=== PATIENT | female | born 1970 | race Caucasian/White ===

== ENCOUNTER 2018-06-30 16:22 | Emergency (ER) | payer OTHER, SELFPAY ==
[2018-06-30 16:30] VITALS: BP 134/70; PULSE 80; RESP 20; TEMP 36.6; O2SAT 99
--- NOTE | 2018-06-30 16:40 | DI.RAD.S_ITS ---
PROCEDURE: XR CHEST 2V INDICATIONS: Shortness of breath and cough. TECHNIQUE: 2 views of the chest were acquired. COMPARISON: None. FINDINGS: Surgical changes and devices: None. Lungs and pleura: No pleural effusions or pneumothorax. Lungs are clear. Mediastinum: Mediastinal contours are normal. Heart size is normal. Bones and chest wall: No suspicious bony abnormalities. Soft tissues appear unremarkable. IMPRESSION: No acute cardiopulmonary pathology. Dictated by: Lorenzo Prakash M.D. on 06/30/2018 at 16:59 Approved by: Lorenzo Prakash M.D. on 06/30/2018 at 17:00
--- NOTE | 2018-06-30 16:52 | ED.SOB ---
HPI - SOB/Dyspnea General Chief Complaint: Shortness of Breath/Dyspnea Stated Complaint: Thinks pneumonia Time Seen by Provider: 06/30/18 16:32 Source: patient Mode of arrival: ambulatory Limitations: no limitations History of Present Illness Patient is a 48-year-old female who presents with dry non hacky cough ongoing for the last 9-10 days. She has not really had a fever. However her cough is getting worse. She coughs every time she takes a breath. She does have a beauty roll inhalers that he has not been using them. She has a history of ARDS on her lungs have been weaker ever since. She has some chest tightness but denies any chest pain. MD Complaint: shortness of breath and cough Consistency/Duration: constant Relieving factors: nothing Exacerbating factors: nothing Related Data Home Medications Medication Instructions Recorded Confirmed citalopram [Celexa] #0 08/03/17 Previous Rx's Medication Instructions Recorded loratadine [Claritin Liqui-Gel] 10 mg PO QDAY #30 sgl 08/04/17 mometasone [Nasonex] 1 spray INTRANASAL BID #1 bot 08/04/17 prednisone 50 mg PO DAILY #4 tab 06/30/18 Allergies Allergy/AdvReac Type Severity Reaction Status Date / Time ciprofloxacin [CIPROFLOXACIN] AdvReac Unknown Unverified 12/05/17 12:06 Review of Systems Review of Systems GENERAL: Denies chills, fatigue, malaise, fever, sweats, travel HEENT: Denies sinus pain, ear pain, sore throat, difficulty swallowing, neck pain RESPIRATORY: See HPI CARDIOVASCULAR: Denies chest pain, palpitations, orthopnea, edema GASTROINTESTINAL: Denies nausea, vomiting, abdominal pain, diarrhea, constipation, melena. : Denies dysuria, frequency, incontinence, hematuria, urinary retention, flank pain. MUSCULOSKELETAL: Denies weakness, joint pain, or bony pain SKIN: No rash, no erythema, no pruritus NEUROLOGIC: Denies weakness, dizziness, headache, numbness, change in speech, confusion PSYCHIATRIC: No concerning psychosocial issues. 12 point review of systems is negative except for those stated above and HPI PFSH Medical History ARDS (adult respiratory distress syndrome) (Acute) Social History Smoking Status: Never smoker alcohol intake: never substance use type: does not use Exam Initial Vital Signs Initial Vital Signs: Vital Signs Temperature 97.9 F 06/30/18 16:30 Pulse Rate 80 06/30/18 16:30 Respiratory Rate 20 06/30/18 16:30 Blood Pressure 134/70 06/30/18 16:30 Pulse Oximetry 99 06/30/18 16:30 GENERAL: Anxious awake alert speaking in full sentences HEENT: Head atraumatic,EOMI, pupils reactive, neck is supple no meningeal sign CARDIOVASCULAR: Regular rate and rhythm without murmurs, rubs or gallops. RESPIRATORY: Slightly decreased breath sounds on the right side no wheezes rales or rhonchi, no stridor speaking in full sentences ABDOMEN: Soft, nontender. Normoactive bowel sounds all 4 quadrants. No guarding or rebound. EXTREMITIES: Normal range of motion, no clubbing or edema. Neurovascularly intact NEUROLOGICAL: Alert and oriented x4.Normal gait and speech SKIN: Warm, dry, no laceration, no petechiae, no rashes or lesions. Course Orders Ordered: ED Orders 06/30/18 16:40 XR chest 2V Stat Discontinued Medications Albuterol/Ipratropium (Duoneb) 3 ml INH NOW ONE Stop: 06/30/18 16:41 Last Admin: 06/30/18 17:13 Dose: 3 ml Vital Signs - 8 hr 06/30/18 16:30 06/30/18 17:13 Temperature 97.9 F Pulse Rate 80 64 Respiratory Rate 20 15 Blood Pressure 134/70 Pulse Oximetry 99 94 MDM - SOB/Dyspnea Imaging Data Chest x-ray: Radiologist's impression: PROCEDURE: XR CHEST 2V INDICATIONS: Shortness of breath and cough. TECHNIQUE: 2 views of the chest were acquired. COMPARISON: None. FINDINGS: Surgical changes and devices: None. Lungs and pleura: No pleural effusions or pneumothorax. Lungs are clear. Mediastinum: Mediastinal contours are normal. Heart size is normal. Bones and chest wall: No suspicious bony abnormalities. Soft tissues appear unremarkable. IMPRESSION: No acute cardiopulmonary pathology. Dictated by: Lorenzo Prakash M.D. on 06/30/2018 at 16:59 Discharge Plan Departure Patient Disposition: Home Clinical Impression: Bronchitis Instructions: Acute Bronchitis Activity Restrictions/Additional Instructions: *You have been diagnosed with bronchitis *What to do: Rest, increase fluids *Continue to take medications as directed Albuterol inhaler with spacer 2 puffs every 4 hr if needed for shortness of breath Prednisone 50 mg once a day starting tomorrow for the next 4 days *Follow up with your primary care provider in 2-3 days *Return to ER if you should have fever, increased shortness of breath or difficulty breathing or any new, worsening or concerning symptoms Prescriptions: New prednisone 50 mg tablet 50 mg PO DAILY Qty: 4 RF: 0 No Action citalopram [Celexa] 10 MG tablet Qty: 0 RF: 0 mometasone [Nasonex] 50 MCG/PUFF spray,non-aerosol 1 spray Intranasal BID Qty: 1 RF: 0 loratadine [Claritin Liqui-Gel] 10 MG capsule 10 mg PO QDAY Qty: 30 RF: 0 Referrals: Mark Carroll MD [Primary Care Provider] -
[2018-06-30 17:13] VITALS: PULSE 64; RESP 15; O2SAT 94
[2018-06-30] MEDS: ALBUTEROL/IPRATROPIUM 3 ML AMPUL INH (17:13)
[2018-06-30] MEDS: predniSONE 20 MG TABLET 60 MG PO (17:57)
== END 2018-06-30 17:55 | disposition home or self-care (01) ==
PROVIDERS: Emergency Provider Emergency Medicine; Family Provider Internal Medicine; PCP Internal Medicine
DX: J40 Bronchitis, not specified as acute or chronic (principal)
CPT/HCPCS: 71046; 94640; 99282; 99283

== ENCOUNTER 2018-12-01 13:01 | Emergency (ER) | payer OTHER, SELFPAY ==
[2018-12-01 13:09] VITALS: BP 125/65; PULSE 88; RESP 20; O2SAT 99
--- NOTE | 2018-12-01 13:09 | DI.RAD.S_ITS ---
PROCEDURE: XR WRIST RT MIN 3V INDICATIONS: fall, rt wrist/forearm pain TECHNIQUE: 4 views of the wrist were acquired. COMPARISON: None. FINDINGS: Bones: There is a small calcified fragment along the medial aspect of the trapezium carpal bone. Scaphoid view: Scaphoid appears intact. Soft tissues: No suspicious soft tissue calcifications. IMPRESSION: Small calcified fragment along the medial aspect of the trapezium, which may be secondary to degenerative change or represent a small displaced fracture. Correlation with point tenderness suggested. Consider followup radiographs in 7-10 days if there is continued clinical concern. Dictated by: Bi Perry M.D. on 12/01/2018 at 15:56 Approved by: Bi Perry M.D. on 12/01/2018 at 16:00
--- NOTE | 2018-12-01 13:09 | DI.RAD.S_ITS ---
PROCEDURE: XR FOREARM RT 2V INDICATIONS: fall, rt wrist/forearm pain TECHNIQUE: 2 views of the forearm were acquired. COMPARISON: None. FINDINGS: Bones: No fractures or dislocations. No suspicious bony lesions. Soft tissues: No suspicious soft tissue calcifications or masses. IMPRESSION: No acute fracture or dislocation of the right forearm. Consider followup radiographs in 7-10 days if there is continued clinical concern. Dictated by: Bi Perry M.D. on 12/01/2018 at 15:54 Approved by: Bi Perry M.D. on 12/01/2018 at 15:56
--- NOTE | 2018-12-01 13:20 | PC.NURSE ---
pt reports first day of spring break in [facility], playing volleyball, dove and fell right forearm unto palm root, now with pain with range of motion, a week ago. arrived wearing wrist splint. +distal cms intact. denies other injuries, denies loc or neck pain.
--- NOTE | 2018-12-01 13:32 | ED.UPPEXIN ---
HPI - Extremity Injury (Upper) General Chief Complaint: Extremity Injury, Upper Stated Complaint: States broke rt arm Time Seen by Provider: 12/01/18 13:05 Source: patient and family Mode of arrival: ambulatory Limitations: no limitations History of Present Illness HPI narrative: 48F nonsmoker with history of kidney stones presents with R wrist pain since an injury last week while on vacation in the [place]. She was playing beach volleyball and dove in an attempt to perform a dig and her outstretched hand hit a palm tree. She was evalauted and given a splint. She has improved ROM and some proximal tingling, but is otherwise well and free of complaint. MD complaint: injury to: right Onset (ago): day(s) Other Extremity Injury: Right: wrist Other injuries: none Handedness: right Place: outdoors Severity: moderate Relieving factors: immobilization Exacerbating factors: movement of extremity Context: direct blow Related Data Home Medications Medication Instructions Recorded Confirmed citalopram [Celexa] #0 08/03/17 Previous Rx's Medication Instructions Recorded loratadine [Claritin Liqui-Gel] 10 mg PO QDAY #30 sgl 08/04/17 mometasone [Nasonex] 1 spray INTRANASAL BID #1 bot 08/04/17 prednisone 50 mg PO DAILY #4 tab 06/30/18 Allergies Allergy/AdvReac Type Severity Reaction Status Date / Time ciprofloxacin [CIPROFLOXACIN] AdvReac Unknown Unverified 12/05/17 12:06 COUNTS INCLUDE 234 BEDS AT THE [facility] Medical History (Updated 12/01/18 @ 14:36 by Jesus Hooker DO) ARDS (adult respiratory distress syndrome) (Acute) Social History (Updated 06/30/18 @ 17:51 by Heather Zhao DO) Smoking Status: Never smoker alcohol intake: never substance use type: does not use Social History (Updated 06/30/18 @ 17:51 by Heather Zhao DO) Smoking Status: Never smoker alcohol intake: never substance use type: does not use Exam Initial Vital Signs Initial Vital Signs: Vital Signs Pulse Rate 88 12/01/18 13:09 Respiratory Rate 20 12/01/18 13:09 Blood Pressure 125/65 12/01/18 13:09 Pulse Oximetry 99 12/01/18 13:09 Procedures Orthopedic Splinting/Casting Injury #1: Side: right Upper Extremity Injury Location: wrist Upper Extremity Immobilizer: wrist splint Post splinting neuro exam: intact Post splinting vascular exam: intact Additional Comments: patient already has splint as prescribed by [place] physician Course Orders Ordered: ED Orders 12/01/18 13:09 XR forearm RT 2V Stat XR wrist RT min 3V Stat Vital Signs - 8 hr 12/01/18 13:09 Pulse Rate 88 Respiratory Rate 20 Blood Pressure 125/65 Pulse Oximetry 99 MDM - Extremity Injury (Upper) Imaging Data Wrist / Forearm Xray: Radiologist's impression: [address] [address] XRay Report Signed Patient: Cassandra Good RMR#: [id number] : 1970Acct:[id number] Age/Sex: 48 / FDate of Service: 12/01/18 Loc: ED Accession Number: [id number] Procedure: XR wrist RT min 3V Ordering Provider: Jesus Hooker D.O. PROCEDURE: XR WRIST RT MIN 3V INDICATIONS: fall, rt wrist/forearm pain TECHNIQUE: 4 views of the wrist were acquired. COMPARISON: None. FINDINGS: Bones: There is a small calcified fragment along the medial aspect of the trapezium carpal bone. Scaphoid view: Scaphoid appears intact. Soft tissues: No suspicious soft tissue calcifications. IMPRESSION: Small calcified fragment along the medial aspect of the trapezium, which may be secondary to degenerative change or represent a small displaced fracture. Correlation with point tenderness suggested. Consider followup radiographs in 7-10 days if there is continued clinical concern. Dictated by: Bi Perry M.D. on 12/01/2018 at 15:56 Approved by: Bi Perry M.D. on 12/01/2018 at 16:[address] [address] XRay Report Signed Patient: Cassandra Good RMR#: [id number] : 1970Acct:[id number] Age/Sex: 48 / FDate of Service: 12/01/18 Loc: ED Accession Number: [id number] Procedure: XR forearm RT 2V Ordering Provider: Jesus Hooker D.O. PROCEDURE: XR FOREARM RT 2V INDICATIONS: fall, rt wrist/forearm pain TECHNIQUE: 2 views of the forearm were acquired. COMPARISON: None. FINDINGS: Bones: No fractures or dislocations. No suspicious bony lesions. Soft tissues: No suspicious soft tissue calcifications or masses. IMPRESSION: No acute fracture or dislocation of the right forearm. Consider followup radiographs in 7-10 days if there is continued clinical concern. Dictated by: Bi Perry M.D. on 12/01/2018 at 15:54 Approved by: Bi Perry M.D. on 12/01/2018 at 15:56 Discharge Plan Departure Patient Disposition: Home Clinical Impression: Right wrist sprain Qualifiers: Encounter type: initial encounter Qualified Code(s): S63.501A - Unspecified sprain of right wrist, initial encounter Discharge Date/Time: 12/01/18 15:05 Interventions: ED Discharge Assessment Last Done: 12/01/18 15:04 Instructions: DI for Wrist Sprain Activity Restrictions/Additional Instructions: *You have been diagnosed with [ acute right wrist sprain ] *What to do: *Take medications as directed: Tylenol or Motrin for pain *Follow up with your primary care provider in 2-3 days, call for an appointment. Let them know you were seen in the Emergency Department and that we ask that you be seen in follow up *Return to ER if you should have any new, worsening or concerning symptoms Prescriptions: No Action citalopram [Celexa] 10 MG tablet Qty: 0 RF: 0 mometasone [Nasonex] 50 MCG/PUFF spray,non-aerosol 1 spray Intranasal BID Qty: 1 RF: 0 loratadine [Claritin Liqui-Gel] 10 MG capsule 10 mg PO QDAY Qty: 30 RF: 0 prednisone 50 mg tablet 50 mg PO DAILY Qty: 4 RF: 0 Referrals: Benjamin Francisco MD [Physician] -
--- NOTE | 2018-12-01 13:38 | ED_ITS ---
HPI - Extremity Injury (Upper) General Chief Complaint: Extremity Injury, Upper Stated Complaint: States broke rt arm Time Seen by Provider: 12/01/18 13:05 Source: patient and family Mode of arrival: ambulatory Limitations: no limitations History of Present Illness HPI narrative: 48F nonsmoker with history of kidney stones presents with R wrist pain since an injury last week while on vacation in the [place]. She was playing beach volleyball and dove in an attempt to perform a dig and her outstretched hand hit a palm tree. She was evalauted and given a splint. She has improved ROM and some proximal tingling, but is otherwise well and free of complaint. MD complaint: injury to: right Onset (ago): day(s) Other Extremity Injury: Right: wrist Other injuries: none Handedness: right Place: outdoors Severity: moderate Relieving factors: immobilization Exacerbating factors: movement of extremity Context: direct blow Related Data Home Medications Medication Instructions Recorded Confirmed citalopram [Celexa] #0 08/03/17 Previous Rx's Medication Instructions Recorded loratadine [Claritin Liqui-Gel] 10 mg PO QDAY #30 sgl 08/04/17 mometasone [Nasonex] 1 spray INTRANASAL BID #1 bot 08/04/17 prednisone 50 mg PO DAILY #4 tab 06/30/18 Allergies Allergy/AdvReac Type Severity Reaction Status Date / Time ciprofloxacin [CIPROFLOXACIN] AdvReac Unknown Unverified 12/05/17 12:06 [facility] Medical History (Updated 12/01/18 @ 14:36 by Jesus Hooker DO) ARDS (adult respiratory distress syndrome) (Acute) Social History (Updated 06/30/18 @ 17:51 by Heather Zhao DO) Smoking Status: Never smoker alcohol intake: never substance use type: does not use Social History (Updated 06/30/18 @ 17:51 by Heather Zhao DO) Smoking Status: Never smoker alcohol intake: never substance use type: does not use Exam Initial Vital Signs Initial Vital Signs: Vital Signs Pulse Rate 88 12/01/18 13:09 Respiratory Rate 20 12/01/18 13:09 Blood Pressure 125/65 12/01/18 13:09 Pulse Oximetry 99 12/01/18 13:09 Procedures Orthopedic Splinting/Casting Injury #1: Side: right Upper Extremity Injury Location: wrist Upper Extremity Immobilizer: wrist splint Post splinting neuro exam: intact Post splinting vascular exam: intact Additional Comments: patient already has splint as prescribed by [place] physician Course Orders Ordered: ED Orders 12/01/18 13:09 XR forearm RT 2V Stat XR wrist RT min 3V Stat Vital Signs - 8 hr 12/01/18 13:09 Pulse Rate 88 Respiratory Rate 20 Blood Pressure 125/65 Pulse Oximetry 99 MDM - Extremity Injury (Upper) Imaging Data Wrist / Forearm Xray: Radiologist's impression: [address] [address] XRay Report Signed Patient: Cassandra Good RMR#: [id number] : 1970Acct:[id number] Age/Sex: 48 / FDate of Service: 12/01/18 Loc: ED Accession Number: [id number] Procedure: XR wrist RT min 3V Ordering Provider: Jesus Hooker D.O. PROCEDURE: XR WRIST RT MIN 3V INDICATIONS: fall, rt wrist/forearm pain TECHNIQUE: 4 views of the wrist were acquired. COMPARISON: None. FINDINGS: Bones: There is a small calcified fragment along the medial aspect of the trapezium carpal bone. Scaphoid view: Scaphoid appears intact. Soft tissues: No suspicious soft tissue calcifications. IMPRESSION: Small calcified fragment along the medial aspect of the trapezium, which may be secondary to degenerative change or represent a small displaced fracture. Correlation with point tenderness suggested. Consider followup radiographs in 7-10 days if there is continued clinical concern. Dictated by: Bi Perry M.D. on 12/01/2018 at 15:56 Approved by: Bi Perry M.D. on 12/01/2018 at 16:[address] [address] XRay Report Signed Patient: Cassandra Good RMR#: [id number] : 1970Acct:[id number] Age/Sex: 48 / FDate of Service: 12/01/18 Loc: ED Accession Number: [id number] Procedure: XR forearm RT 2V Ordering Provider: Jesus Hooker D.O. PROCEDURE: XR FOREARM RT 2V INDICATIONS: fall, rt wrist/forearm pain TECHNIQUE: 2 views of the forearm were acquired. COMPARISON: None. FINDINGS: Bones: No fractures or dislocations. No suspicious bony lesions. Soft tissues: No suspicious soft tissue calcifications or masses. IMPRESSION: No acute fracture or dislocation of the right forearm. Consider followup radiographs in 7-10 days if there is continued clinical concern. Dictated by: Bi Perry M.D. on 12/01/2018 at 15:54 Approved by: Bi Perry M.D. on 12/01/2018 at 15:56 Discharge Plan Departure Patient Disposition: Home Clinical Impression: Right wrist sprain Qualifiers: Encounter type: initial encounter Qualified Code(s): S63.501A - Unspecified sprain of right wrist, initial encounter Discharge Date/Time: 12/01/18 15:05 Interventions: ED Discharge Assessment Last Done: 12/01/18 15:04 Instructions: DI for Wrist Sprain Activity Restrictions/Additional Instructions: *You have been diagnosed with [ acute right wrist sprain ] *What to do: *Take medications as directed: Tylenol or Motrin for pain *Follow up with your primary care provider in 2-3 days, call for an appointment. Let them know you were seen in the Emergency Department and that we ask that you be seen in follow up *Return to ER if you should have any new, worsening or concerning symptoms Prescriptions: No Action citalopram [Celexa] 10 MG tablet Qty: 0 RF: 0 mometasone [Nasonex] 50 MCG/PUFF spray,non-aerosol 1 spray Intranasal BID Qty: 1 RF: 0 loratadine [Claritin Liqui-Gel] 10 MG capsule 10 mg PO QDAY Qty: 30 RF: 0 prednisone 50 mg tablet 50 mg PO DAILY Qty: 4 RF: 0 Referrals: Benjamin Francisco MD [Physician] -
--- NOTE | 2018-12-01 15:05 | PC.NURSE ---
no new order for splint, pt will be wearing what she already has.
== END 2018-12-01 15:05 | disposition home or self-care (01) ==
PROVIDERS: Emergency Provider Emergency Medicine; PCP Internal Medicine
DX: S63.501A Unspecified sprain of right wrist, initial encounter (principal); M79.631 Pain in right forearm; W19.XXXA Unspecified fall, initial encounter
CPT/HCPCS: 73090; 73110; 99283

== ENCOUNTER → 2019-06-07 16:08 | Outpatient (CLI) | payer OTHER, SELFPAY ==
[2019-06-07 16:37] LABS: Add Manual Diff / Slide Review NO; Basophils Absolute Auto 0 /uL (0-100); Basophils Percent Auto 0.6 % (0-2); Eosinophils Absolute Auto 100 /uL (0-450); Eosinophils Percent Auto 2.2 % (2-4); Hematocrit 39.6 % (36-46); Hemoglobin 13.6 g/dL (12.0-16.0); Lymphocytes Absolute Auto 1500 /uL (1100-4500); Lymphocytes Percent Auto 22.9 % (25-40); Mean Corpuscular HGB Conc 34.5 % (30-36); Mean Corpuscular Hemoglobin 33.1 PG (26-34); Mean Corpuscular Volume 96.1 fL (80-100); Monocytes Absolute Auto 600 /uL (0-900); Monocytes Percent Auto 9.5 % (3-14); Neutrophils Absolute Auto 4100 /uL (1500-7000); Neutrophils Percent Auto 64.8 % (50-75); Platelet Count 224 X10^3/uL (150-400); Red Blood Cell Count 4.12 X10^6/uL (4.0-5.2); Red Cell Distribution Width 12.5 % (11.6-14.8); White Blood Cell Count 6.4 X10^3/uL (4.5-11.0)
[2019-06-07 16:44] LABS: Prothrombin Time 11.4 SECONDS (10.1-12.7)
[2019-06-07 16:47] LABS: PTT Partial Thromboplastin Tim 33 SECONDS (26.4-36.2)
== END ==
PROVIDERS: PCP Internal Medicine; Visit Provider Internal Medicine
DX: R79.1 Abnormal coagulation profile (principal)
CPT/HCPCS: 36415; 85025; 85610; 85730

== ENCOUNTER 2019-06-14 08:29 | Emergency (ER) | payer OTHER, SELFPAY ==
[2019-06-14 08:44] VITALS: BP 124/55; PULSE 68; RESP 18; TEMP 36.5; O2SAT 100; BMI 21.5
--- NOTE | 2019-06-14 09:00 | ED.DENTAL ---
HPI - Dental/Oral General Chief complaint: Dental/Oral Stated complaint: Post oral surgery complications Time Seen by Provider: 06/14/19 09:00 Source: patient Mode of arrival: Ambulatory History of Present Illness HPI Narrative: Patient is a 49-year-old female who presents with a variety of complaints mostly dental pain. She had oral surgery 2 weeks ago she has had some complications she had bleeding for 4 days afterwards the bleeding has stopped. She was placed on amoxicillin apparently amoxicillin was not working she was put on a Z-Júnior which she finished yesterday. She thought that the roof of her mouth with yellow last night. She says looks better today. Her throat is sore but has been sore since she choked at least 3 weeks ago. She overall feels weak and tired. She was seen by her PCP who did bleeding studies on her another testing. She says that her mouth is in a lot of pain today. She also has chronic back pain she takes oxycodone for however for her dental pain she has only been taking ibuprofen her last dose was yesterday morning. She has absolutely no facial swelling redness. Related Data Home Medications Medication Instructions Recorded Confirmed citalopram [Celexa] #0 08/03/17 Previous Rx's Medication Instructions Recorded loratadine [Claritin Liqui-Gel] 10 mg PO QDAY #30 sgl 08/04/17 mometasone [Nasonex] 1 spray INTRANASAL BID #1 bot 08/04/17 prednisone 50 mg PO DAILY #4 tab 06/30/18 Allergies Allergy/AdvReac Type Severity Reaction Status Date / Time ciprofloxacin [CIPROFLOXACIN] AdvReac Unknown Verified 06/14/19 08:44 Review of Systems Review of Systems Narrative: GENERAL: Denies chills,fever HEENT: See HPI Denies throat pain RESPIRATORY: Denies dyspnea, cough, wheezing CARDIOVASCULAR: Denies chest pain, palpitations GASTROINTESTINAL: Denies nausea, vomiting MUSCULOSKELETAL: Denies extremity pain, injury SKIN: No rash, no laceration, no pruritus NEUROLOGIC: Denies weakness, dizziness, headache, numbness 8 point review of systems is negative except for those stated above and HPI Patient History Medical History ARDS (adult respiratory distress syndrome) (Acute) Social History (Updated 06/30/18 @ 17:51 by Heather Zhao DO) Smoking Status: Never smoker alcohol intake: never substance use type: does not use Social History Smoking Status: Never smoker alcohol intake: never substance use type: does not use alcohol intake frequency: a few times a week Alcohol type: wine Substance Use Type: does not use Exam Initial Vital Signs Initial Vital Signs: Vital Signs Temperature 97.7 F 06/14/19 08:44 Pulse Rate 68 06/14/19 08:44 Respiratory Rate 18 06/14/19 08:44 Blood Pressure 124/55 L 06/14/19 08:44 Pulse Oximetry 100 06/14/19 08:44 GENERAL: Well-appearing, well-nourished and in no acute distress. HEENT: Head atraumatic,EOMI, pupils reactive, face symmetric PHARYNX: No erythema, no tonsillar exudate, no cervical lymphadenopathy slight of hard palate no tonsillar exudate no trismus no cervical lymphadenopathy site of dental surgery appears well there is no abscess there is no bleeding CARDIOVASCULAR: Regular rate and rhythm without murmurs, rubs or gallops. RESPIRATORY: Breath sounds equal bilaterally, no wheezes rales or rhonchi. ABDOMEN: Soft, nontender. Normoactive bowel sounds all 4 quadrants. No guarding or rebound. EXTREMITIES: Normal range of motion, no clubbing or edema. Neurovascularly intact NEUROLOGICAL: Alert and oriented x4.Normal gait and speech. SKIN: Warm, dry, no laceration, no petechiae, no rashes or lesions. Course Orders Ordered: Discontinued Medications Ketorolac Tromethamine (Toradol) 30 mg IM NOW ONE Stop: 06/14/19 09:08 Last Admin: 06/14/19 09:20 Dose: 30 mg Documented by: MEISENFox Vital Signs Vital signs: Vital Signs - 8 hr 06/14/19 08:44 06/14/19 09:31 Temperature 97.7 F Pulse Rate 68 58 L Respiratory Rate 18 12 Blood Pressure 124/55 L Blood Pressure [Right Arm] 125/64 Pulse Oximetry 100 98 MDM - Dental/Oral MDM Narrative Medical decision making narrative: No sign of infection bleeding or abnormality of the oral pharynx. Recommend outpatient follow-up. Discharge Plan Departure Patient Disposition: Home Clinical Impression: Pain, dental Discharge Date/Time: 06/14/19 09:57 Instructions: DI for Dental Pain Activity Restrictions/Additional Instructions: *You have been diagnosed with dental pain *What to do: At this time no need for further antibiotics. I recommend following up with her PCP or your dentist in regard to your pain medication *Continue to take medications as directed *Follow up with your primary care provider in 2-3 days *Return to ER if you should have facial swelling inability to follow or any new, worsening or concerning symptoms Prescriptions: No Action citalopram [Celexa] 10 MG tablet Qty: 0 RF: 0 mometasone [Nasonex] 50 MCG/PUFF spray,non-aerosol 1 spray Intranasal BID Qty: 1 RF: 0 loratadine [Claritin Liqui-Gel] 10 MG capsule 10 mg PO QDAY Qty: 30 RF: 0 prednisone 50 mg tablet 50 mg PO DAILY Qty: 4 RF: 0 Referrals: Mark Carroll MD [Primary Care Provider] -
[2019-06-14] MEDS: KETOROLAC 60 MG/2 ML VIAL 30 MG IM (09:20)
[2019-06-14 09:31] VITALS: BP 125/64; PULSE 58; RESP 12; O2SAT 98
== END 2019-06-14 09:57 | disposition home or self-care (01) ==
PROVIDERS: Emergency Provider Emergency Medicine; PCP Internal Medicine
DX: K08.89 Other specified disorders of teeth and supporting structures (principal)
CPT/HCPCS: 96372; 99282; 99283; J1885

== ENCOUNTER 2019-10-15 17:57 | Emergency (ER) | payer OTHER, SELFPAY ==
[2019-10-15 18:09] VITALS: BP 110/60; PULSE 65; RESP 18; TEMP 36.7; O2SAT 100; BMI 21.5
[2019-10-15 18:48] LABS: Prothrombin Time 11.3 SECONDS (10.1-12.7)
[2019-10-15 18:51] LABS: PTT Partial Thromboplastin Tim 33 SECONDS (26.4-36.2)
[2019-10-15 18:52] LABS: Alanine Aminotransferase 16 IU/L (<35); Albumin Globulin Ratio 1.6 (1.0-2.8); Alkaline Phosphatase 106 U/L (38-126); Aspartate Aminotransferase 32 IU/L (14-36); BUN Creatinine Ratio 17.5 (6-22); Bilirubin Total 0.5 mg/dL (0.2-1.3); Blood Urea Nitrogen 14 mg/dL (7-17); Calcium 9.8 mg/dL (8.4-10.2); Carbon Dioxide 30 mmol/L (22-32); Chloride 105 mmol/L (98-107); Estimated Glomerular Filt Rate > 60.0 mL/min (>60); Globulin 3.1 g/dL (1.7-4.1); Glucose 89 mg/dL (70-100); HEMOLYSIS 20 (0-50); Potassium 3.7 mmol/L (3.4-5.1); Sodium 142 mmol/L (137-145); Total Protein 8.1 g/dL (6.3-8.2)
[2019-10-15 18:57] LABS: Add Manual Diff / Slide Review NO; Basophils Absolute Auto 0 /uL (0-100); Basophils Percent Auto 0.8 % (0-2); Eosinophils Absolute Auto 200 /uL (0-450); Hematocrit 38.9 % (36-46); Hemoglobin 13.6 g/dL (12.0-16.0); Lymphocytes Absolute Auto 1700 /uL (1100-4500); Lymphocytes Percent Auto 30.2 % (25-40); Mean Corpuscular HGB Conc 34.9 % (30-36); Mean Corpuscular Hemoglobin 32.8 PG (26-34); Monocytes Absolute Auto 400 /uL (0-900); Monocytes Percent Auto 7.5 % (3-14); Neutrophils Absolute Auto 3300 /uL (1500-7000); Neutrophils Percent Auto 58.5 % (50-75); Platelet Count 254 X10^3/uL (150-400); Red Blood Cell Count 4.14 X10^6/uL (4.0-5.2); Red Cell Distribution Width 13.3 % (11.6-14.8); White Blood Cell Count 5.6 X10^3/uL (4.5-11.0)
--- NOTE | 2019-10-15 18:59 | ED.GIBLEED ---
HPI - GI Bleed General Chief complaint: GI Bleed Stated complaint: states severe bleeding, abd pain Time Seen by Provider: 10/15/19 18:43 Source: patient Mode of arrival: Ambulatory Limitations: no limitations History of Present Illness HPI Narrative: 49-year-old female here for evaluation of lower abdominal pain and 1 episode of bright red blood per rectum earlier today. No urinary symptoms. No vaginal bleeding. Has had a total hysterectomy in the past. States this morning she did have a bowel movement. She noticed some red color to the water with the stool. She stated that having the bowel movement did not change her abdominal pain. Some nausea but no vomiting. Was told to come to the emergency department for evaluation by her primary provider. Related Data Home Medications Medication Instructions Recorded Confirmed citalopram [Celexa] #0 08/03/17 Previous Rx's Medication Instructions Recorded loratadine [Claritin Liqui-Gel] 10 mg PO QDAY #30 sgl 08/04/17 mometasone [Nasonex] 1 spray INTRANASAL BID #1 bot 08/04/17 prednisone 50 mg PO DAILY #4 tab 06/30/18 Allergies Allergy/AdvReac Type Severity Reaction Status Date / Time ciprofloxacin [CIPROFLOXACIN] AdvReac Unknown Verified 06/14/19 08:44 Review of Systems Constitutional Constitutional: Denies fever(s) Cardiovascular Cardiovascular: Denies chest pain and Denies dyspnea Respiratory Respiratory: Denies dyspnea Gastrointestinal Gastrointestinal: Reports abdominal pain, Reports nausea and Denies vomiting Comments: Bright red blood per rectum Genitourinary Genitourinary: Denies dysuria and Denies vaginal discharge Musculoskeletal Musculoskeletal: Denies myalgias and Denies arthralgias Integumentary/Breasts Skin/Breast: Denies lesions and Denies rash Neurologic Neurologic: Denies behavioral changes Psychiatric Psychiatric: Denies behavioral changes Hematologic/Lymphatic Hematologic/Lymphatic: Denies easy bleeding and Denies easy bruising Patient History Medical History ARDS (adult respiratory distress syndrome) (Acute) Surgical History (Updated 10/15/19 @ 21:01 by Maryjo Montgomery RN) H/O: hysterectomy (Acute) Social History Smoking Status: Never smoker alcohol intake: never substance use type: does not use Smoking Status: Never smoker alcohol intake frequency: a few times a week Alcohol type: wine Substance Use Type: does not use Exam Initial Vital Signs Initial Vital Signs: Vital Signs Temperature 98.0 F 10/15/19 18:09 Pulse Rate 65 10/15/19 18:09 Respiratory Rate 18 10/15/19 18:09 Blood Pressure 110/60 10/15/19 18:09 Pulse Oximetry 100 10/15/19 18:09 Const General: cooperative and healthy appearing Limitations: mental status not altered HENMT Head: normal to inspection and normocephalic Resp Effort & Inspection: normal respiratory effort Auscultation: clear to auscultation bilaterally Cardio Rate: regular rate Rhythm: regular rhythm GI Inspection: non-distended Palpation: soft and tender Rectal Exam: visual inspection normal, heme negative stool and No hemorrhoids Back/Spine/Pelvis Back: No CVA tenderness Skin Lesions: no lesions Rashes: no rashes Neuro General: alert, awake and oriented x3 Cognition: normal cognition Speech: speech normal Extrem General: normal to inspection and capillary refill normal Psych Appearance: grossly normal and well kempt Scores GCS Preston coma scale eye opening: Spontaneous Max coma scale verbal response: Orientated Preston coma scale motor response: Obey commands Preston coma scale total score: 15 Course Orders Ordered: ED Orders 10/15/19 18:16 EKG-12 Lead Stat 10/15/19 18:25 Complete Blood Count AUTO DIFF Stat Comprehensive Metabolic Panel Stat Partial Thromboplastin Time Stat Prothrombin Time INR Stat 10/15/19 18:59 CT abdomen pelvis w con Stat Discontinued Medications Ketorolac Tromethamine (Toradol) 30 mg IV NOW ONE Stop: 10/15/19 20:15 Last Admin: 10/15/19 20:24 Dose: 30 mg Documented by: BIRD Vital Signs Vital signs: Vital Signs - 8 hr 10/15/19 18:09 10/15/19 20:34 10/15/19 22:26 Temperature 98.0 F Pulse Rate 60 89 Pulse Rate [Left] 65 Respiratory Rate 18 20 14 Blood Pressure 121/65 Blood Pressure [Left Arm] 110/60 132/63 Pulse Oximetry 100 100 99 MDM - GI Bleed Lab Data Attestation: I reviewed the patient's lab results. Result diagrams: 10/15/19 18:25 10/15/19 18:25 Labs: Lab Results 10/15/19 10/15/19 10/15/19 Range/Units 18:25 18:25 18:25 WBC 5.6 (4.5-11.0) X10^3/uL RBC 4.14 (4.0-5.2) X10^6/uL Hgb 13.6 (12.0-16.0) g/dL Hct 38.9 (36-46) % MCV 94.0 (80-100) fL MCH 32.8 (26-34) PG MCHC 34.9 (30-36) % RDW 13.3 (11.6-14.8) % Plt Count 254 (150-400) X10^3/uL Neut % (Auto) 58.5 (50-75) % Lymph % (Auto) 30.2 (25-40) % [place] % (Auto) 7.5 (3-14) % Eos % (Auto) 3.0 (2-4) % Baso % (Auto) 0.8 (0-2) % Neut # (Auto) 3300 (0354-8315) /uL Lymph # (Auto) 1700 (4812-6977) /uL [place] # (Auto) 400 (0-900) /uL Eos # (Auto) 200 (0-450) /uL Baso # (Auto) 0 (0-100) /uL PT 11.3 (10.1-12.7) SECONDS INR 1.0 (0.9-1.3) APTT 33 (26.4-36.2) SECONDS Sodium 142 (137-145) mmol/L Potassium 3.7 (3.4-5.1) mmol/L Chloride 105 (98-107) mmol/L Carbon Dioxide 30 (22-32) mmol/L BUN 14 (7-17) mg/dL Creatinine 0.80 (0.52-1.04) mg/dL Estimated GFR > 60.0 (>60) mL/min BUN/Creatinine Ratio 17.5 (6-22) Glucose 89 (70-100) mg/dL Calcium 9.8 (8.4-10.2) mg/dL Total Bilirubin 0.5 (0.2-1.3) mg/dL AST 32 (14-36) IU/L ALT 16 (<35) IU/L Alkaline Phosphatase 106 (38-126) U/L Total Protein 8.1 (6.3-8.2) g/dL Albumin 5.0 (3.5-5.0) g/dL Globulin 3.1 (1.7-4.1) g/dL Albumin/Globulin Ratio 1.6 (1.0-2.8) Point of Care Testing Stool Occult Blood Negative Urine Dip Bedside Urine Glucose Negative Bedside Urine Bilirubin - Negative Bedside Urine Ketone - Negative Urine Specific [place] 1.010 Bedside Urine Occult Blood - Negative Bedside Urine pH 7.5 Bedside Urine Protein - Negative Bedside Urine Urobilinogen +/- 1mg Bedside Urine Nitrite - Negative Bedside Urine Leukocytes - Negative Esterase Imaging Data CT scan - abdomen/pelvis: Radiologist's Impression: [address] [address] [address] Scan Report Signed Patient: Cassandra Good RMR#: [id number] : 1970Acct:[id number] Age/Sex: 49 / FDate of Service: 10/15/19 Loc: ED Accession Number: [id number] Procedure: CT abdomen pelvis w con Ordering Provider: Guicho Rossi D.O. PROCEDURE: CT ABDOMEN PELVIS W CON INDICATIONS: Generalized abdominal pain with rectal bleeding TECHNIQUE: After the administration of intravenous contrast, 5 mm thick sections acquired from the diaphragm to the symphysis. 5 mm coronal and sagittal reformats were acquired. For radiation dose reduction, the following was used: automated exposure control, adjustment of mA and/or kV according to patient size. COMPARISON: [facility], CT, ABDOMEN/PELVIS WITH CONTRAST, 01/05/2017, 17:03. FINDINGS: Image quality: Excellent. ABDOMEN: Lung bases: Lung bases are clear. Heart size is normal. Solid organs: Liver is normal in size and enhancement. The gallbladder wall is mildly prominent. No fluid around the gallbladder. No gallbladder is not distended. Biliary system is non dilated. Pancreas enhances normally. Spleen is normal in size and enhancement. No adrenal nodules. Kidneys demonstrate normal size and enhancement, without hydronephrosis. Peritoneum and bowel: Bowel loops demonstrate normal wall thickness and caliber. No free fluid or air. Nodes and vessels: No retroperitoneal or mesenteric adenopathy by size criteria. Aorta and inferior vena cava are normal in size. The splenic vein and main portal vein and portal vein branches are all quite prominent, as before. Miscellaneous: No ventral hernias. Bilateral breast implants. PELVIS: Genitourinary: Bladder wall thickness is normal. Uterus is surgically absent. Miscellaneous: No inguinal hernias or adenopathy. Bones: No suspicious bony lesions. No vertebral body compression fractures. IMPRESSION: 1. Incidental note is made of diffuse prominence of the splenic vein and portal vein and portal vein branches, unchanged. 2. Remote hysterectomy. 3. No evidence acute abdominal process. Dictated by: Dragan Rosado M.D. on 10/15/2019 at 19:55 Approved by: Dragan Rosado M.D. on 10/15/2019 at 19:59 MDM Narrative Medical decision making narrative: Patient's vital signs are unremarkable. Has heme-negative stool. Does have lower abdominal tenderness which did seem to improve quite a bit with IV Toradol. CT scan shows no signs of acute pathology. Patient's H&H unremarkable. No indication for blood transfusion. No indication for antibiotics. No indication for acute surgical intervention. I did discuss all this with the patient. Informed her that she should talk with her primary doctor about further evaluation to include a colonoscopy. We did discuss her CT results her lab results. Patient expressed understanding and agreement plan. We did discuss return precautions and follow-up instructions. Discharge Plan Departure Patient Disposition: Home Clinical Impression: Abdominal pain Qualifiers: Abdominal location: lower abdomen, unspecified Qualified Code(s): R10.30 - Lower abdominal pain, unspecified Discharge Date/Time: 10/15/19 22:26 Instructions: DI for Abdominal Pain-Adult Activity Restrictions/Additional Instructions: Recommend that you talk with your primary provider about a follow-up in to discuss the indications for a colonoscopy. Return to the emergency department for any new or worsening symptoms Prescriptions: No Action citalopram [Celexa] 10 MG tablet Qty: 0 RF: 0 mometasone [Nasonex] 50 MCG/PUFF spray,non-aerosol 1 spray Intranasal BID Qty: 1 RF: 0 loratadine [Claritin Liqui-Gel] 10 MG capsule 10 mg PO QDAY Qty: 30 RF: 0 prednisone 50 mg tablet 50 mg PO DAILY Qty: 4 RF: 0 Referrals: Mark Carroll MD [Primary Care Provider] -
[2019-10-15] MEDS: KETOROLAC 60 MG/2 ML VIAL 30 MG IV (20:24)
[2019-10-15 20:34] VITALS: BP 132/63; PULSE 60; RESP 20; O2SAT 100
[2019-10-15 22:26] VITALS: BP 121/65; PULSE 89; RESP 14; O2SAT 99
== END 2019-10-15 22:26 | disposition home or self-care (01) ==
PROVIDERS: Emergency Provider Emergency Medicine; PCP Internal Medicine
DX: R10.30 Lower abdominal pain, unspecified (principal); K62.5 Hemorrhage of anus and rectum
CPT/HCPCS: 36415; 74177; 80053; 81003; 82272; 85025; 85610; 85730; 96374; 99284; J1885; Q9967

== ENCOUNTER → 2020-03-19 09:46 | Outpatient (CLI) | payer OTHER, SELFPAY ==
[2020-03-21 19:16] LABS: COVID19 Sendout Not Detected (Not Detect)
== END ==
PROVIDERS: PCP Internal Medicine; Visit Provider Physician Assistant
DX: Z01.818 Encounter for other preprocedural examination (principal)
CPT/HCPCS: 87635

== ENCOUNTER 2020-03-22 07:23 | Day surgery (SDC) | payer OTHER, SELFPAY ==
--- NOTE | 2020-03-22 | PATH_ITS ---
[facility] Accession Number: [id number] . 01 Material submitted: . esophagus, E-G Junction - GE JUNCTION . 01 Clinical history: . SCREENING COLONOSCOPY . 02 Diagnosis: Gastroesophageal Junction, Biopsy: Squamocolumnar junctional mucosa with mild chronic inflammation. Negative for specialized intestinal metaplasia, dysplasia or malignancy. V 03/24/2020 0940 Local . 02 Electronically signed: . Moses Arana MD, PhD, Pathologist NPI- [id number] . 01 Gross description: . GE JUNCTION: Received in formalin are 4 fragment(s) of vital, soft tissue measuring 0.2 x 0.2 x 0.1 cm to 0.3 x 0.3 x 0.3 cm submitted entirely in 1 cassette(s) /KELLY 03/23/2020 0156 Local . 02 Pathologist provided ICD-10: K20.9 . 02 CPT . 074033 Performed at: 01 [facility] [address], [place], [place] [id number] MD Cayetano Marrero MD Phone: [phone] Performed at: 02 [facility] [address] [place], [place] [id number] MD Annetta Ervin MD Phone: [phone]
[2020-03-22 07:44] VITALS: BP 117/73; PULSE 85; RESP 16; TEMP 36.1; O2SAT 98; BMI 22.2
[2020-03-22] MEDS: LACTATED RINGERS 1,000 ML 200 ML IV (07:59)
--- NOTE | 2020-03-22 08:20 | P.HP_ITS ---
History of Present Illness History of Present Illness Date Patient Seen: 03/22/20 Time Patient Seen: 08:21 Chief complaint: SCREENING COLONOSCOPY Narrative: The patient presents for colorectal sreening. There previous colonoscopy 10 years ago that demonstrated adenomatous polyps which were removed. In addition she has complaint of dysphagia which she describes as a sensation that solid food gets stuck in their lower esophagus. No personal or family history of colon cancer. On further history denies any recent gastrointestinal symptoms. No nausea, vomiting, abdominal pain, loss of appetite, unexplained weight loss, change in bowel habits, diarrhea, consti pation. She does have history of some bright red blood per rectum within the past 1 year. Patient History Medical History ARDS (adult respiratory distress syndrome) (Acute) Surgical History H/O: hysterectomy (Acute) Family & Social History Social History: household members spouse Tobacco & Substance use: Smoking Status Never smoker alcohol intake current alcohol intake frequency 0-2 drinks per day Substance Use Type does not use Meds Home Medications and Allergies Home Medications Medication Instructions Recorded Confirmed Type albuterol sulfate 2 puff INHALATION Q4-6H PRN 03/22/20 03/22/20 History clonazepam 0.5 mg PO PRN PRN 03/22/20 03/22/20 History mometasone [Nasonex] 1 spray INTRANASAL BID PRN 03/22/20 03/22/20 History Allergies Allergy/AdvReac Type Severity Reaction Status Date / Time ciprofloxacin [CIPROFLOXACIN] AdvReac Unknown Vomiting Verified 03/22/20 07:41 Review of Systems Review of Systems Narrative: A 10 point review of systems is negative except as noted in the HPI Exam Vital Signs (past 8 hours): - 03/22/20 07:44 Temperature 97.0 F L Pulse Rate 85 Respiratory Rate 16 Blood Pressure 117/73 Pulse Oximetry 98 Oxygen Delivery Method Room Air Narrative Exam Narrative: General-no acute distress, well nourished HEENT-moist mucous membranes, no scleral icterus Neck-supple, no lymphadenopathy Chest- non labored respirations, clear to auscultation bilaterally Cardiac-regular rate no peripheral edema Abdomen-soft, nontender, non distended Extremities-warm, well perfused Neurological-alert and oriented, no focal deficits Assessment & Plan Assessment and plan (1) Dysphagia: Status: Acute (2) Screening for colon cancer: Status: Acute Assessment & Plan narrative: The patient requires colorectal screening and colonoscopy is recommended. Technical details were discussed. Risks, benefits, alternatives explained. Additionally she has new onset dysphagia and I recommended that we proceed with a esophagoduodenoscopy with possible dilatation in addition to the colonoscopy. Risks including but not limited to myocardial infarction, aspiration, bleeding, pain, missed lesion, incomplete examination, need for further radiographic studies, perforation, and need for major abdominal surgery were discussed. All questions were answered to their satisfaction, and they are in agreement with this plan. COVID-19 COVID-19 status: Negative
--- NOTE | 2020-03-22 09:05 | PM.OP.ENDO ---
Operative Date/Time/Diagnoses Date of procedure: 03/22/20 Time of procedure: 09:05 Pre-op diagnosis: Dysphagia, screening colonoscopy Post-op diagnosis: same Procedure & Clinicians Study performed: Esophagoduodenoscopy, colonoscopy Same procedure as scheduled: Yes Indications: 49-year-old female with new onset dysphagia with solid foods and prior colonoscopy in the demonstrated adenomatous polyps presents for screening colonoscopy Surgeon: Jacky Obrien Procedure Notes SCOAP/Timeout: Performed Procedure in detail: Patient placed in left lateral decubitus position. Time out was performed. Procedural sedation was administered with Versed and Fentanyl. A bite block was placed. the scope was inserted into the mouth and advanced through the esophagus and into the stomach. The pylorus was intubated and the duodenum was normal. The scope was retroflexed within the stomach and there was no hiatal hernia. No ulcers, or gastritis. The scope was withdrawn into the esophagus the Z line was seen at 40 cm from the incisions. There was no ervin's esophageal masses or strictures. There was mild distal esophagitis and 4 random biopsies of the Z line were taken with forceps. Stomach was desufflated and scope removed. Patient tolerated procedure well. Patient placed in left lateral decubitus position. Time out was performed. Procedural sedation was administered with Versed and Fentanyl. A rectal exam demonstrated no external hemorrhoids no internal masses. Colonoscopy scope was placed into the rectum and advanced through the colon to the cecum. The descending colon was extremely tortuous recurring positional change of the patient and a a scope stiffener to be placed. The ileocecal valve was identified. The scope was then slowly withdrawn examining colon thoroughly in all directions. The colonoscopy was notable for the following 1. Extremely tortuous colon 2. No masses or polyps 3. Blood clots within the colon Scope withdrawal time: 6 Sedation minutes: 37 Findings: other findings (Esophagitis) Specimen(s): other (Biopsy GE junction) Complications: none Impression: Esophagitis Post-procedure Recommendations: Colonscopy in 10 years and Start medication(s) (Omeprazole 20 mg daily) Disposition: same day surgery
[2020-03-22] MEDS: fentaNYL 250 MCG/5 ML INJ IV (09:07)
[2020-03-22] MEDS: MIDAZOLAM 5 MG/5 ML VIAL IV (09:07)
[2020-03-22] MEDS: LIDOCAINE 4% SOLN 50 ML 20 ML TOP (09:08)
[2020-03-22 09:13] VITALS: BP 148/79; PULSE 92; RESP 14; TEMP 36.4; O2SAT 95
[2020-03-22 09:18] VITALS: BP 151/64; PULSE 95; RESP 12; O2SAT 96
[2020-03-22 09:23] VITALS: BP 150/53; PULSE 95; RESP 14; O2SAT 97
[2020-03-22 09:28] VITALS: BP 136/61; PULSE 81; RESP 12; O2SAT 98
[2020-03-22 09:45] VITALS: BP 130/71; PULSE 87; RESP 16; TEMP 36.7; O2SAT 97
--- NOTE | 2020-03-22 10:31 | SUR.PHASEII ---
Pt had multiple questions, spoke with Dr. Obrien to clarify her questions, pt left when ready and left in stable condition.
== END 2020-03-22 10:00 | disposition home or self-care (01) ==
PROVIDERS: PCP Internal Medicine; Referring Provider Surgery; Visit Provider Surgery
PROC: 0DJ08ZZ Inspection of Upper Intestinal Tract, Via Natural or Artificial Opening Endoscopic (ICD-10-PCS; CPT 43235; principal; 2020-03-22 08:30)
DX: Z12.11 Encounter for screening for malignant neoplasm of colon (principal); K20.9 Esophagitis, unspecified
CPT/HCPCS: 43239; 45378; 99152; 99153; J2250; J3010

== ENCOUNTER → 2020-04-28 08:47 | Outpatient (CLI) | payer OTHER, SELFPAY ==
--- NOTE | 2020-04-28 | DI.MRI.S_ITS ---
PROCEDURE: MR KNEE RT WO CON INDICATIONS: RIGHT KNEE PAIN TECHNIQUE: Noncontrast sagittal PD fast spin echo and T2 fast spin echo with fat saturation, sagittal 3-D FLASH with fat saturation; coronal T1 spin echo and PD fast spin echo with fat saturation, and axial PD fast spin echo with fat saturation through the knee. COMPARISON: None. FINDINGS: Image quality: Excellent. Menisci: Oblique tear involving posterior horn of medial meniscus is seen extending to the inferior articulating surface. There is no evidence of focal lateral meniscal tear. The meniscal root ligaments appear intact. Cruciate ligaments: The anterior and posterior cruciate ligaments appear intact. Medial structures: The medial collateral ligament appears intact. The posterior oblique ligament, semimembranosus tendon insertions, oblique popliteal ligament, and meniscocapsular junction appear intact. Visualized portions of the pes anserinus tendons appear normal. No abnormal bursal fluid. Lateral structures: The lateral collateral ligament, long and short heads of the biceps femoris tendon appear intact. The popliteus tendon appears normal; the popliteofibular ligament appears intact. The posterosuperior and anteroinferior popliteomeniscal fascicles appear intact. The arcuate and fabellofibular ligaments appear intact, on either side of the lateral inferior geniculate artery. Iliotibial band appears normal. Anterior structures: Mild soft tissue swelling and edema along anterior aspect of patella and patella tendon is seen. The quadriceps and patellar tendons appear intact. Patellar alignment is normal. No femoral trochlear dysplasia or ventral trochlear prominence. No edema in the infrapatellar fat pad. Bones and cartilage: No bone marrow contusions or fractures. The cartilage of the medial and lateral femorotibial compartments appears normal in thickness. Chondromalacia patella involving lateral facet and apex of patella cartilage is seen. Joint space: There is small to moderate amount of joint fluid. No Frances's cyst. Normal appearing synovial plicae are incidentally noted. IMPRESSION: 1. Oblique tear involving posterior horn of medial meniscus extending to inferior articulating surface. No evidence of focal lateral meniscal tear. 2. Cruciate ligaments are intact. 3. Chondromalacia patella involving lateral facet of patella cartilage near apex. No fracture or dislocation. No marrow edema. Small to moderate amount of joint fluid. Dictated by: Lorenzo Prakash M.D. on 04/28/2020 at 9:52 Approved by: Lorenzo Prakash M.D. on 04/28/2020 at 10:06
== END ==
PROVIDERS: PCP Internal Medicine
DX: M25.561 Pain in right knee (principal); S83.241A Other tear of medial meniscus, current injury, right knee, initial encounter; M22.41 Chondromalacia patellae, right knee
CPT/HCPCS: 73721

== ENCOUNTER → 2020-11-16 15:18 | Outpatient (CLI) | payer OTHER, SELFPAY ==
--- NOTE | 2020-11-16 15:19 | DI.RAD.S_ITS ---
PROCEDURE: XR DEXA AXIAL SKELETON INDICATIONS: OSTEOPOROSIS,ROUTINE SCREENING MAMMOGRAM COMPARISON: None. FINDINGS: This blank DEXA report has been sent in error by the PACS system. The correct and complete report will be forthcoming in 1-2 days. Thank you for your patience and understanding. Dictated by: Alannah Valdes MD, PhD on 11/17/2020 at 17:26 Approved by: Alannah Valdes MD, PhD on 11/17/2020 at 17:26
== END ==
PROVIDERS: PCP Internal Medicine; Referring Provider Physician Assistant Medical; Visit Provider Physician Assistant Medical
DX: Z13.820 Encounter for screening for osteoporosis (principal); M85.852 Other specified disorders of bone density and structure, left thigh; Z78.0 Asymptomatic menopausal state; Z82.62 Family history of osteoporosis; Z90.722 Acquired absence of ovaries, bilateral
CPT/HCPCS: 77080

== ENCOUNTER → 2021-07-02 12:00 | Outpatient (CLI) | payer OTHER, SELFPAY ==
[2021-07-02 12:46] LABS: COVID19 -Nasal RAPID Negative (Negative)
== END ==
PROVIDERS: PCP Internal Medicine; Visit Provider Physician Assistant
DX: Z20.822 Contact with and (suspected) exposure to COVID-19 (principal); J34.9 Unspecified disorder of nose and nasal sinuses
CPT/HCPCS: 87635

== ENCOUNTER → 2022-04-12 13:17 | Outpatient (CLI) | payer OTHER, SELFPAY ==
--- NOTE | 2022-04-12 | DI.RAD.S_ITS ---
PROCEDURE: XR CHEST 2V INDICATIONS: COUGH TECHNIQUE: 2 views of the chest were acquired. COMPARISON: [facility], , XR CHEST 2V, 06/30/2018, 16:18. FINDINGS: Surgical changes and devices: None. Lungs and pleura: There is hyperinflation and chronic interstitial changes without focal infiltrate, pleural effusion or pneumothorax. Mediastinum: Mediastinal contours are normal. Heart size is normal. Bones and chest wall: No suspicious bony abnormalities. Soft tissues appear unremarkable. IMPRESSION: No acute cardiopulmonary findings Approved by: Rohit Haynes M.D. on 04/12/2022 at 16:07
--- NOTE | 2022-04-12 | DI.MG.S_ITS ---
BILATERAL DIGITAL DIAGNOSTIC MAMMOGRAM 3D/2D WITH AUGMENTATION: 04/12/2022 CLINICAL: Mastodynia left. No prior exams were available for comparison. There are scattered fibroglandular elements in both breasts. Bilateral breast implants are intact. No significant masses, calcifications, or other findings are seen in either breast. IMPRESSION: NEGATIVE There is no mammographic evidence of malignancy. A 1 year screening mammogram is recommended. Based on the Tyrer Cuzick model (a risk assessment model) the patient's lifetime risk is 4.6% and her 10 year risk is 1.1%. According to the ACR, ACS, and NCCN guidelines, an annual breast MRI exam along with mammogram is recommended if the patient's lifetime risk is 20% or greater. This exam was interpreted at Station ID: [id number]. NOTE: For mammograms, a report in lay terms will be sent to the patient. Approximately 15% of breast malignancies will not be visualized mammographically. In the management of a palpable breast mass, a negative mammogram must not discourage biopsy of a clinically suspicious lesion. Electronically Signed By: Kranthi Blankenship M.D., jr/wan:04/12/2022 14:00:20 letter sent: Normal Exam ACR BI-RADS Category 1: Negative [id number]
== END ==
PROVIDERS: PCP Internal Medicine; Referring Provider Physician Assistant; Visit Provider Physician Assistant
DX: N64.4 Mastodynia (principal); R07.9 Chest pain, unspecified; R05.9 Cough, unspecified; Z98.82 Breast implant status
CPT/HCPCS: 71046; 77066; G0279

== ENCOUNTER 2022-06-27 13:30 | Emergency (ER) | payer OTHER, SELFPAY ==
[2022-06-27 13:30] VITALS: BP 108/55; PULSE 66; RESP 16; TEMP 35.8; O2SAT 94; BMI 25.1
--- NOTE | 2022-06-27 13:33 | DI.CT.S_ITS ---
PROCEDURE: CT HEAD/BRAIN WO CON INDICATIONS: trauma TECHNIQUE: Noncontrast 4.5 mm thick angled axial sections acquired from the foramen magnum to the vertex, with coronal and sagittal reformats. For radiation dose reduction, the following was used: automated exposure control, adjustment of mA and/or kV according to patient size. COMPARISON: [facility], CT, HEAD WITHOUT CONTRAST, 07/17/2008, 14:25. [facility], CT, HEAD WITHOUT CONTRAST, 04/30/2014, 21:02. FINDINGS: Image quality: Excellent. CSF spaces: Basal cisterns are patent. No extra-axial fluid collections. Ventricles are normal in size and shape. Brain: No midline shift. No intracranial masses or hemorrhage. Escalante-white matter interface is normal. Skull and face: Calvarium and visualized facial bones are intact, without suspicious lesions. Sinuses: Visualized sinuses and mastoids are clear. IMPRESSION: No acute intracranial hemorrhage is seen. No displaced calvarial fracture is seen. No acute intracranial process is seen. Dictated by: Edgar Bauer M.D. on 06/27/2022 at 12:49 Approved by: Edgar Bauer M.D. on 06/27/2022 at 12:50
--- NOTE | 2022-06-27 13:34 | ED.HEATRA ---
HPI - Head Injury <Alden Rosas MD - Last Filed: 06/27/22 14:06> General Chief complaint: Head Injury Stated complaint: Head injury, neck and back pain Time Seen by Provider: 06/27/22 13:33 History of Present Illness HPI Narrative: [employer] Ms. Good comes by EMS to the hospital today because of an injury to her head. She was standing near her desk in the gymnasium when a basketball from an unknown direction struck her on the top of the head with great force. She said she saw a flash of blackness and felt a very loud ?crack? in the top of her head. She felt lightheaded and nauseated she had to sit down. She did not fall down or faint. She has multiple closed head injuries in the past. She feels tingling in her back between her shoulder blades and pain in that location. She says her abdomen feels uncomfortable as well though she sustained no injury there. Related Data Home Medications Medication Instructions Recorded Confirmed albuterol sulfate 90 mcg/actuation 2 puff inhalation Q4-6H PRN 03/22/20 07/02/21 aerosol inhaler Wheezing clonazepam 0.5 mg tablet 0.5 mg PO PRN PRN Anxiety 03/22/20 07/02/21 mometasone 50 mcg/actuation nasal 1 spray intranasal BID PRN 03/22/20 07/02/21 spray (Nasonex) Congestion Previous Rx's Medication Instructions Recorded omeprazole 20 mg capsule,delayed 20 mg PO DAILY #90 caps 03/22/20 release ondansetron 8 mg disintegrating 8 mg PO BID PRN nausea and 07/02/21 tablet vomiting #14 tabs methocarbamol 750 mg tablet 1,500 mg PO Q8H PRN muscle spasm 06/27/22 #20 tabs ondansetron 4 mg disintegrating 4 mg PO Q8H PRN nausea and 06/27/22 tablet vomiting #10 tabs Allergies Allergy/AdvReac Type Severity Reaction Status Date / Time ciprofloxacin [CIPROFLOXACIN] AdvReac Unknown Vomiting Verified 07/02/21 12:05 <Heather Zhao DO - Last Filed: 06/28/22 02:28> Review of Systems Narrative: GENERAL: Denies chills, fatigue, malaise, fever, sweats, travel HEENT: Denies sinus pain, ear pain, sore throat, difficulty swallowing, neck pain RESPIRATORY: Denies dyspnea, cough, wheezing, hemoptysis, sputum. CARDIOVASCULAR: Denies chest pain, palpitations, orthopnea, edema GASTROINTESTINAL: Denies nausea, vomiting, abdominal pain, diarrhea, constipation, melena. : Denies dysuria, frequency, incontinence, hematuria, urinary retention, flank pain. MUSCULOSKELETAL: See HPI SKIN: No rash, no erythema, no pruritus NEUROLOGIC: See HPI PSYCHIATRIC: No concerning psychosocial issues. 12 point review of systems is negative except for those stated above and HPI Patient History <Alden Rosas MD - Last Filed: 06/27/22 14:06> Medical History (Updated 06/27/22 @ 19:39 by Heather Zhao DO) ARDS (adult respiratory distress syndrome) Surgical History H/O: hysterectomy Social History household members: spouse Smoking Status: Never smoker alcohol intake: current substance use type: does not use Smoking Status: Never smoker alcohol intake frequency: 0-2 drinks per day Alcohol type: wine Substance Use Type: does not use Exam <Alden Rosas MD - Last Filed: 06/27/22 14:06> Initial Vital Signs Initial Vital Signs: Vital Signs Temperature 96.4 F L 06/27/22 13:30 Pulse Rate 66 06/27/22 13:30 Respiratory Rate 16 06/27/22 13:30 Blood Pressure 108/55 L 06/27/22 13:30 Pulse Oximetry 94 06/27/22 13:30 Oxygen Delivery Method 06/27/22 13:30 <Heather Zhao DO - Last Filed: 06/28/22 02:28> Initial Vital Signs Initial Vital Signs: Vital Signs Temperature 96.4 F L 06/27/22 13:30 Pulse Rate 66 06/27/22 13:30 Respiratory Rate 16 06/27/22 13:30 Blood Pressure 108/55 L 06/27/22 13:30 Pulse Oximetry 94 06/27/22 13:30 Oxygen Delivery Method 06/27/22 13:30 GENERAL: Awake alert 52-year-old female appears in pain HEENT: Head atraumatic,EOMI, pupils reactive, face symmetric, moist mucous membranes NECK: Full flexion rotation and extension. However she is tender midline slightly more to the left CARDIOVASCULAR: Regular rate and rhythm without murmurs, rubs or gallops. RESPIRATORY: Breath sounds equal bilaterally, no wheezes rales or rhonchi. ABDOMEN: Soft, nontender. Normoactive bowel sounds all 4 quadrants. No guarding or rebound. EXTREMITIES: Normal range of motion, no clubbing or edema. Neurovascularly intact NEUROLOGICAL: Alert and oriented x4.Normal gait and speech. Cranial nerves II through XII grossly intact. Electrician Office strength equal bilaterally no motor or sensory deficits in radial median and ulnar nerves. SKIN: Warm, dry, no laceration, no petechiae, no rashes or lesions. Course <Alden Rosas MD - Last Filed: 06/27/22 14:06> Orders Ordered: ED Orders 06/27/22 18:47 CT cervical spine wo con Stat Discontinued Medications Acetaminophen (Acetaminophen 325 Mg Tablet) 975 mg PO NOW ONE Stop: 06/27/22 13:56 Last Admin: 06/27/22 14:05 Dose: 975 mg Documented By: GUS Ibuprofen (Ibuprofen 400 Mg Tablet) 800 mg PO NOW ONE Stop: 06/27/22 13:56 Last Admin: 06/27/22 14:05 Dose: 800 mg Documented By: GUS Ketorolac Tromethamine (Ketorolac 30 Mg/Ml Vial) 15 mg IM NOW ONE Stop: 06/27/22 17:20 Last Admin: 06/27/22 17:35 Dose: 15 mg Documented By: VERA Ondansetron HCl (Ondansetron 4 Mg Odt) 4 mg SL NOW ONE Stop: 06/27/22 13:56 Last Admin: 06/27/22 14:05 Dose: 4 mg Documented By: GUS Ondansetron HCl (Ondansetron 4 Mg Odt) 4 mg SL NOW ONE Stop: 06/27/22 17:20 Last Admin: 06/27/22 17:36 Dose: 4 mg Documented By: VERA Ondansetron HCl (Ondansetron 4 Mg/2 Ml Inj) 4 mg IV NOW ONE Stop: 06/27/22 18:48 Last Admin: 06/27/22 19:37 Dose: 4 mg Documented By: GHAZAL Vital Signs Vital signs: Vital Signs - 8 hr 06/27/22 18:48 Pulse Rate 69 Respiratory Rate 14 Blood Pressure 141/67 H Pulse Oximetry 100 Oxygen Delivery Method Room Air <Heather Zhao DO - Last Filed: 06/28/22 02:28> Orders Ordered: ED Orders 06/27/22 18:47 CT cervical spine wo con Stat Discontinued Medications Acetaminophen (Acetaminophen 325 Mg Tablet) 975 mg PO NOW ONE Stop: 06/27/22 13:56 Last Admin: 06/27/22 14:05 Dose: 975 mg Documented By: GUS Ibuprofen (Ibuprofen 400 Mg Tablet) 800 mg PO NOW ONE Stop: 06/27/22 13:56 Last Admin: 06/27/22 14:05 Dose: 800 mg Documented By: GUS Ketorolac Tromethamine (Ketorolac 30 Mg/Ml Vial) 15 mg IM NOW ONE Stop: 06/27/22 17:20 Last Admin: 06/27/22 17:35 Dose: 15 mg Documented By: VERA Ondansetron HCl (Ondansetron 4 Mg Odt) 4 mg SL NOW ONE Stop: 06/27/22 13:56 Last Admin: 06/27/22 14:05 Dose: 4 mg Documented By: GUS Ondansetron HCl (Ondansetron 4 Mg Odt) 4 mg SL NOW ONE Stop: 06/27/22 17:20 Last Admin: 06/27/22 17:36 Dose: 4 mg Documented By: VERA Ondansetron HCl (Ondansetron 4 Mg/2 Ml Inj) 4 mg IV NOW ONE Stop: 06/27/22 18:48 Last Admin: 06/27/22 19:37 Dose: 4 mg Documented By: GHAZAL Vital Signs Vital signs: Vital Signs - 8 hr 06/27/22 18:48 Pulse Rate 69 Respiratory Rate 14 Blood Pressure 141/67 H Pulse Oximetry 100 Oxygen Delivery Method Room Air MDM - Head Injury <Alden Rosas MD - Last Filed: 06/27/22 14:06> Imaging Data CT scan - head: Radiologist's Impression: IMPRESSION:? No acute intracranial hemorrhage is seen.? ? No displaced calvarial fracture is seen. ? No acute intracranial process is seen.? ? ? Dictated by: Edgar Bauer M.D. on 06/27/2022 at 12:49 ? ? Approved by: Edgar Bauer M.D. on 06/27/2022 at 12:50 ? <Heather Zhao DO - Last Filed: 06/28/22 02:28> Imaging Data CT - cervical spine: Radiologist's Impression: Signed Patient: Cassandra Good MR#: [id number] : 1970 Acct:[id number] Age/Sex: 52 / F Date of Service: 06/27/22 Loc: ED Accession Number: [id number] ?? Procedure: CT cervical spine wo con Ordering Provider: Heather Zhao D.O. PROCEDURE:? CT CERVICAL SPINE WO CON ? INDICATIONS:? loading mechanism pain ? TECHNIQUE:? Noncontrast 3 mm thick sections acquired from the skull base to the T4 level.? Sagittal and coronal reformats were then constructed.? For radiation dose reduction, the following was used:? automated exposure control, adjustment of mA and/or kV according to patient size.? ? COMPARISON:? [facility], CT, C-SPINE WITHOUT CONTRAST, 07/17/2008, 14:25. ? FINDINGS:? Image quality:? Excellent.? ? Bones:? No fractures or dislocations.? Visualized superior ribs are intact.? ? Soft tissues:? Prevertebral soft tissues are normal in thickness.? No paravertebral hematomas.? No apical pneumothoraces.? ? ? IMPRESSION:? 1. No acute traumatic abnormality of the cervical spine. 2. Degenerative disc disease at C5-6.? Dictated by: Elder Bass M.D. on 06/27/2022 at 19:32? [facility] Narrative Medical decision making narrative: Patient signed out to me by Dr. Rosas. Basketball hit her on top of the head. She almost lost consciousness but did not. She has been extremely nauseous she heard something crack she has neck pain. She has had Tylenol ibuprofen and Zofran. She required Versed in the EMS because her hands cap spasming possibly hyperventilation. Overall still not feeling great. CT cervical spine does not show any fracture. She likely has a mild concussion. Supportive care only. Discharge Plan Departure Patient Disposition: Home Clinical Impression: Closed head injury, Cervical muscle strain Instructions: Whiplash, Concussion Activity Restrictions/Additional Instructions: *You have been diagnosed with closed head injury, cervical strain *What to do: At this time her CT scan does not show any fracture or bleeding in your brain. He likely have a mild concussion. Expect to be sensitive to light and noise he may find that you have difficulty concentrating. Please limit screen time. Rest and sleep. He may find that you are sore tomorrow. Light activity is encouraged some light stretching no strenuous activity *Continue to take medications as directed --> [facility] Tylenol 1000 mg every 6 hours if needed for [id number] pain Ibuprofen 600 mg every 6 hours if needed for [id number] pain Methocarbamol 1500 mg every 8 hours if needed for muscle spasm *Follow up with your primary care provider in 2-3 days or call [phone] *Return to ER if you should have increasing pain numbness tingling weakness or any new, worsening or concerning symptoms Prescriptions: New methocarbamol 750 mg tablet 1,500 mg PO Q8H PRN (Reason: muscle spasm) Qty: 20 0RF ondansetron 4 mg tablet,disintegrating 4 mg PO Q8H PRN (Reason: nausea and vomiting) Qty: 10 0RF No Action ondansetron 8 mg tablet,disintegrating 8 mg PO BID PRN (Reason: nausea and vomiting) Qty: 14 0RF clonazepam 0.5 mg Tablet 0.5 mg PO PRN PRN (Reason: Anxiety) albuterol sulfate 90 mcg/actuation Hfa Aerosol Inhaler 2 puff INHALATION Q4-6H PRN (Reason: Wheezing) mometasone [Nasonex] 50 MCG/PUFF spray,non-aerosol 1 spray Intranasal BID PRN (Reason: Congestion) omeprazole 20 mg capsule,delayed release(DR/EC) 20 mg PO DAILY Qty: 90 0RF Referrals: Mark Carroll MD [Primary Care Provider] - Stand Alone Forms: Work Release Note Visit Report Forms: Patient Portal/API
[2022-06-27] MEDS: IBUPROFEN 400 MG TABLET 800 MG PO (14:05)
[2022-06-27] MEDS: ACETAMINOPHEN 325 MG TABLET 975 MG PO (14:05)
[2022-06-27] MEDS: ONDANSETRON 4 MG ODT SL ×2 (14:05→17:36)
[2022-06-27 17:35] VITALS: BP 130/61; PULSE 54; RESP 22; O2SAT 100
[2022-06-27] MEDS: KETOROLAC 30 MG/ML VIAL 15 MG IM (17:35)
--- NOTE | 2022-06-27 18:47 | DI.CT.S_ITS ---
PROCEDURE: CT CERVICAL SPINE WO CON INDICATIONS: loading mechanism pain TECHNIQUE: Noncontrast 3 mm thick sections acquired from the skull base to the T4 level. Sagittal and coronal reformats were then constructed. For radiation dose reduction, the following was used: automated exposure control, adjustment of mA and/or kV according to patient size. COMPARISON: [facility], CT, C-SPINE WITHOUT CONTRAST, 07/17/2008, 14:25. FINDINGS: Image quality: Excellent. Bones: No fractures or dislocations. Visualized superior ribs are intact. Soft tissues: Prevertebral soft tissues are normal in thickness. No paravertebral hematomas. No apical pneumothoraces. IMPRESSION: 1. No acute traumatic abnormality of the cervical spine. 2. Degenerative disc disease at C5-6. Dictated by: Elder Bass M.D. on 06/27/2022 at 19:32 Approved by: Elder Bass M.D. on 06/27/2022 at 19:34
[2022-06-27 18:48] VITALS: BP 141/67; PULSE 69; RESP 14; O2SAT 100
[2022-06-27] MEDS: ONDANSETRON 4 MG/2 ML INJ IV (19:37)
== END 2022-06-27 19:56 | disposition home or self-care (01) ==
PROVIDERS: Emergency Provider Emergency Medicine; PCP Internal Medicine
DX: S09.90XA Unspecified injury of head, initial encounter (principal); S16.1XXA Strain of muscle, fascia and tendon at neck level, initial encounter; W21.05XA Struck by basketball, initial encounter; Y99.0 Civilian activity done for income or pay
CPT/HCPCS: 70450; 72125; 96372; 96374; 99284; J1885; J2405

== ENCOUNTER 2023-12-09 04:45 | Emergency (ER) | payer OTHER, SELFPAY ==
[2023-12-09] VITALS (15 sets, daily range): BP systolic 99–144; BP diastolic 50–66; PULSE 60–84; RESP 20; TEMP 36.6; O2SAT 94–100; BMI 21.5
--- NOTE | 2023-12-09 04:58 | DI.CT.S_ITS ---
PROCEDURE: CT ABDOMEN PELVIS W CON INDICATIONS: severe midepigastric pain, n/v TECHNIQUE: After the administration of intravenous contrast, axial sections acquired from the lung bases to the pubic symphysis. Coronal and sagittal reformats were performed. For radiation dose reduction, the following was used: automated exposure control, adjustment of mA and/or kV according to patient size. COMPARISON: [facility], CT, CT ABDOMEN PELVIS W CON, 10/15/2019, 19:33. [facility], CT, ABDOMEN/PELVIS WITH CONTRAST, 01/05/2017, 17:03. FINDINGS: Image quality: Diagnostic. Lower Chest: No significant findings. ABDOMEN: Liver: No solid mass. Gallbladder: No radiopaque gallstones or wall thickening. Biliary ducts: No biliary dilation. Pancreas: No ductal dilation. Spleen: Size is within normal limits. Adrenal Glands: No adrenal nodules. Kidneys and Ureters: No hydronephrosis. No solid mass. No complex renal cystic lesion which requires follow up. Bilateral ureters are normal in course and caliber. Stomach and Bowel: Normal colonic caliber, without significant wall thickening. Multiple nonspecific fluid-filled loops of nondilated small bowel in the mid and lower abdomen. Normal appendix. Peritoneum: No abnormal intraperitoneal fluid. No free air. Ventral Wall: There is a fat-containing umbilical hernia without acute inflammation. Abdominal Nodes: No retroperitoneal or mesenteric adenopathy by size criteria. Vessels: Aorta and inferior vena cava are normal in size. PELVIS: Pelvic Organs: Status post hysterectomy.. Bladder: No bladder wall thickening, accounting for underdistention. Pelvic Nodes: No enlarged lymph nodes. Miscellaneous: No inguinal hernias are seen. Bones: Visualized osseous structures appear intact without acute fracture or focal destructive lesion. No acute compression fractures of the imaged spine. IMPRESSION: 1. A few nonspecific fluid-filled loops of nondilated small bowel which may be related to enteritis either infectious or inflammatory in etiology. Otherwise, no acute abnormalities identified in the abdomen or pelvis. The appendix is normal. 2. Status post hysterectomy. No significant discrepancy with the production supervisor off shift radiology preliminary report. Dictated by: David Zuleta M.D. on 12/09/2023 at 7:23 Approved by: David Zuleta M.D. on 12/09/2023 at 7:27
--- NOTE | 2023-12-09 05:00 | ED_ITS ---
HPI - Abdominal Pain <Annamarie Campoverde MD - Last Filed: 12/10/23 01:22> General Chief Complaint: Abdominal Pain Stated Complaint: Vertigo severe, Black stool syncope NVD, Fever Time Seen by Provider: 12/09/23 04:47 History of Present Illness HPI narrative: 53-year-old female with no significant past medical history presents by private vehicle from home for severe midepigastric and suprapubic abdominal pain. Patient states that she woke up in the middle of the night with severe abdominal cramping. She went to the bathroom and had what she states was a dark purple colored bowel movement with mucus. When she stood up she passed out. She woke up and sat back down in the toilet. When she wiped there was little bit of blood on the tissue paper but none in the toilet bowl. Patient reports intermittent vertigo that she attributed to a sinus infection for the last 3-4 days. Related Data Home Medications Medication Instructions Recorded Confirmed albuterol sulfate 90 mcg/actuation 2 puff inhalation Q4-6H PRN 03/22/20 07/02/21 aerosol inhaler Wheezing clonazepam 0.5 mg tablet 0.5 mg PO PRN PRN Anxiety 03/22/20 07/02/21 mometasone 50 mcg/actuation nasal 1 spray intranasal BID PRN 03/22/20 07/02/21 spray (Nasonex) Congestion Previous Rx's Medication Instructions Recorded omeprazole 20 mg capsule,delayed 20 mg PO DAILY #90 caps 03/22/20 release ondansetron 8 mg disintegrating 8 mg PO BID PRN nausea and 07/02/21 tablet vomiting #14 tabs methocarbamol 750 mg tablet 1,500 mg (2 x 750 mg) PO Q8H PRN 06/27/22 muscle spasm #20 tabs ondansetron 4 mg disintegrating 4 mg PO Q8H PRN nausea and 06/27/22 tablet vomiting #10 tabs Allergies Allergy/AdvReac Type Severity Reaction Status Date / Time ciprofloxacin [CIPROFLOXACIN] AdvReac Unknown Vomiting Verified 07/02/21 12:05 Review of Systems <Annamarie Campoverde MD - Last Filed: 12/10/23 01:22> Review of Systems Narrative: Negative except as noted above Patient History <Annamarie Campoverde MD - Last Filed: 12/10/23 01:22> Medical History (Updated 12/09/23 @ 07:24 by Annamarie Barr DO) ARDS (adult respiratory distress syndrome) Surgical History H/O: hysterectomy Social History household members: spouse Smoking Status: Never smoker alcohol intake: current substance use type: does not use Smoking Status: Never smoker alcohol intake frequency: 0-2 drinks per day Alcohol type: wine Substance Use Type: does not use Exam <Annamarie Campoverde MD - Last Filed: 12/10/23 01:22> Initial Vital Signs Initial Vital Signs: Vital Signs Blood Pressure 137/66 12/09/23 04:55 Const: Awake, alert, uncomfortable, in pain Cardiac: regular rate, regular rhythm RESP: unlabored, clear bilaterally, no wheezing GI: Soft, no peritoneal signs. Patient clutching her midepigastric and lower abdomen Skin: Warm, Dry, intact, no rashes Neuro: AO x3, CN II-XII grossly intact, moves all extremities <Annamarie Barr DO - Last Filed: 12/09/23 09:38> Initial Vital Signs Initial Vital Signs: Vital Signs Blood Pressure 137/66 12/09/23 04:55 Course <Annamarie Campoverde MD - Last Filed: 12/10/23 01:22> Orders Ordered: Discontinued Medications Droperidol (Droperidol 5 Mg/2 Ml Vial) 2.5 mg IV NOW ONE Stop: 12/09/23 06:48 Last Admin: 12/09/23 07:02 Dose: 2.5 mg Documented By: KATHERINE Sodium Chloride (Normal Saline 0.9%) 1,000 mls @ 1,000 mls/hr IV BOLUS ONE Stop: 12/09/23 05:57 Last Infusion: 12/09/23 06:23 Dose: Infused Documented By: Admin: 12/09/23 05:11 Dose: 1,000 mls/hr Documented By: Sodium Chloride (Normal Saline 0.9%) 1,000 mls @ 1,000 mls/hr IV BOLUS ONE Stop: 12/09/23 07:46 Last Infusion: 12/09/23 08:04 Dose: Infused Documented By: Admin: 12/09/23 07:02 Dose: 1,000 mls/hr Documented By: KATHERINE Morphine Sulfate (Morphine 4 Mg/Ml Inj) 4 mg IV NOW ONE Stop: 12/09/23 04:59 Last Admin: 12/09/23 05:11 Dose: 4 mg Documented By: Morphine Sulfate (Morphine 4 Mg/Ml Inj) 4 mg IV NOW ONE Stop: 12/09/23 06:04 Last Admin: 12/09/23 06:12 Dose: 4 mg Documented By: JORGE Ondansetron HCl (Ondansetron 4 Mg/2 Ml Inj) 4 mg IV NOW ONE Stop: 12/09/23 04:59 Last Admin: 12/09/23 05:11 Dose: 4 mg Documented By: Vital Signs Vital signs: Vital Signs - 8 hr 12/09/23 04:55 12/09/23 04:56 12/09/23 04:58 Temperature 97.9 F Pulse Rate 83 77 Respiratory Rate 20 Blood Pressure 137/66 144/58 H Pulse Oximetry 100 100 Oxygen Delivery Method Room Air Room Air 12/09/23 05:00 12/09/23 05:01 12/09/23 05:01 Temperature Pulse Rate 68 68 Respiratory Rate Blood Pressure 144/58 H Pulse Oximetry 100 100 Oxygen Delivery Method Room Air Room Air 12/09/23 05:40 12/09/23 05:43 12/09/23 05:43 Temperature Pulse Rate 79 60 Respiratory Rate Blood Pressure 106/51 L Pulse Oximetry 100 Oxygen Delivery Method Room Air 12/09/23 06:00 12/09/23 06:00 12/09/23 06:30 Temperature Pulse Rate 72 Respiratory Rate Blood Pressure 117/62 116/60 Pulse Oximetry 100 Oxygen Delivery Method Room Air 12/09/23 06:30 12/09/23 07:47 12/09/23 07:48 Temperature Pulse Rate 80 84 84 Respiratory Rate Blood Pressure Pulse Oximetry 97 94 Oxygen Delivery Method 12/09/23 07:53 12/09/23 07:53 12/09/23 08:00 Temperature Pulse Rate 76 64 Respiratory Rate Blood Pressure 103/50 L Pulse Oximetry 95 95 Oxygen Delivery Method 12/09/23 08:02 12/09/23 08:03 Temperature Pulse Rate 80 Respiratory Rate Blood Pressure 99/51 L Pulse Oximetry 98 Oxygen Delivery Method <Annamarie Barr, DO - Last Filed: 12/09/23 09:38> Orders Ordered: Discontinued Medications Droperidol (Droperidol 5 Mg/2 Ml Vial) 2.5 mg IV NOW ONE Stop: 12/09/23 06:48 Last Admin: 12/09/23 07:02 Dose: 2.5 mg Documented By: KATHERINE Sodium Chloride (Normal Saline 0.9%) 1,000 mls @ 1,000 mls/hr IV BOLUS ONE Stop: 12/09/23 05:57 Last Infusion: 12/09/23 06:23 Dose: Infused Documented By: Admin: 12/09/23 05:11 Dose: 1,000 mls/hr Documented By: Sodium Chloride (Normal Saline 0.9%) 1,000 mls @ 1,000 mls/hr IV BOLUS ONE Stop: 12/09/23 07:46 Last Infusion: 12/09/23 08:04 Dose: Infused Documented By: Admin: 12/09/23 07:02 Dose: 1,000 mls/hr Documented By: KATHERINE Morphine Sulfate (Morphine 4 Mg/Ml Inj) 4 mg IV NOW ONE Stop: 12/09/23 04:59 Last Admin: 12/09/23 05:11 Dose: 4 mg Documented By: Morphine Sulfate (Morphine 4 Mg/Ml Inj) 4 mg IV NOW ONE Stop: 12/09/23 06:04 Last Admin: 12/09/23 06:12 Dose: 4 mg Documented By: JORGE Ondansetron HCl (Ondansetron 4 Mg/2 Ml Inj) 4 mg IV NOW ONE Stop: 12/09/23 04:59 Last Admin: 12/09/23 05:11 Dose: 4 mg Documented By: Vital Signs Vital signs: Vital Signs - 8 hr 12/09/23 04:55 12/09/23 04:56 12/09/23 04:58 Temperature 97.9 F Pulse Rate 83 77 Respiratory Rate 20 Blood Pressure 137/66 144/58 H Pulse Oximetry 100 100 Oxygen Delivery Method Room Air Room Air 12/09/23 05:00 12/09/23 05:01 12/09/23 05:01 Temperature Pulse Rate 68 68 Respiratory Rate Blood Pressure 144/58 H Pulse Oximetry 100 100 Oxygen Delivery Method Room Air Room Air 12/09/23 05:40 04/14/24 05:43 12/09/23 05:43 Temperature Pulse Rate 79 60 Respiratory Rate Blood Pressure 106/51 L Pulse Oximetry 100 Oxygen Delivery Method Room Air 12/09/23 06:00 12/09/23 06:00 12/09/23 06:30 Temperature Pulse Rate 72 Respiratory Rate Blood Pressure 117/62 116/60 Pulse Oximetry 100 Oxygen Delivery Method Room Air 12/09/23 06:30 12/09/23 07:47 12/09/23 07:48 Temperature Pulse Rate 80 84 84 Respiratory Rate Blood Pressure Pulse Oximetry 97 94 Oxygen Delivery Method 12/09/23 07:53 12/09/23 07:53 12/09/23 08:00 Temperature Pulse Rate 76 64 Respiratory Rate Blood Pressure 103/50 L Pulse Oximetry 95 95 Oxygen Delivery Method 12/09/23 08:02 12/09/23 08:03 Temperature Pulse Rate 80 Respiratory Rate Blood Pressure 99/51 L Pulse Oximetry 98 Oxygen Delivery Method MDM - Abdominal Pain <Annamarie Campoverde MD - Last Filed: 12/10/23 01:22> Differential Diagnosis Differential diagnosis: Likely abdominal pain, acute appendicitis and calculus of kidney Lab Data 12/09/23 05:00 12/09/23 05:00 Labs: Lab Results 12/09/23 12/09/23 Range/Units 05:00 05:06 WBC 7.8 (4.5-11.0) X10^3/uL RBC 4.23 (4.0-5.2) X10^6/uL Hgb 13.7 (12.0-16.0) g/dL Hct 39.6 (36-46) % MCV 93.6 (80-100) fL MCH 32.5 (26-34) PG MCHC 34.7 (30-36) % RDW 13.1 (11.6-14.8) % Plt Count 273 (150-400) X10^3/uL Neut % (Auto) 79.1 H (50-75) % Lymph % (Auto) 13.8 L (25-40) % [place] % (Auto) 5.9 (3-14) % Eos % (Auto) 0.8 L (2-4) % Baso % (Auto) 0.4 (0-2) % Neut # (Auto) 6200 (3418-4251) /uL Lymph # (Auto) 1100 (6554-1985) /uL [place] # (Auto) 500 (0-900) /uL Eos # (Auto) 100 (0-450) /uL Baso # (Auto) 0 (0-100) /uL PT 11.2 (9.4-12.5) SECONDS INR 1.0 (0.9-1.3) Sodium 140 (137-145) mmol/L Potassium 3.6 (3.4-5.1) mmol/L Chloride 108 H (98-107) mmol/L Carbon Dioxide 24 (22-32) mmol/L BUN 12 (7-17) mg/dL Creatinine 0.78 (0.52-1.04) mg/dL Estimated GFR > 60 (>60) mL/min BUN/Creatinine Ratio 15.4 (6-22) Glucose 108 H (70-100) mg/dL Lactate 1.7 (0.7-2.1) mmol/L Calcium 9.5 (8.4-10.2) mg/dL Total Bilirubin 0.5 (0.2-1.3) mg/dL AST 28 (14-36) IU/L ALT 15 (<35) IU/L Alkaline Phosphatase 107 (38-126) U/L Total Protein 7.7 (6.3-8.2) g/dL Albumin 4.9 (3.5-5.0) g/dL Globulin 2.8 (1.7-4.1) g/dL Albumin/Globulin Ratio 1.8 (1.0-2.8) Lipase 169 (23-300) U/L Urine Color Yellow Urine Appearance Clear Urine pH 8.5 H (4.5-8.0) Ur Specific [place] 1.015 (1.000-1.035) Urine Protein Negative (Negative) Urine Glucose (UA) Negative (Negative) g/dL Urine Ketones Negative (NEGATIVE) Urine Occult Blood Negative (Negative) Urine Nitrate Negative (Negative) Urine Bilirubin Negative (NEGATIVE) Urine Urobilinogen 0.2 (0.2) E.U./dL Ur Leukocyte Esterase Negative (NEGATIVE) Urine RBC None seen (0-5/HPF) Urine WBC None seen (0-5/HPF) Ur Squamous Epith Cells 0-1 /hpf (0-5/HPF) Urine Bacteria None seen (None) Ur Culture Indicated? Cult not indicated Vol Urine Centrifuged 10ml (spun) MDM Narrative Medical decision making narrative: Patient appears to be in significant pain, grabbing at her lower abdomen. States she has a history of hysterectomy and oophorectomy. Morphine, IV fluids ordered. CT of the abdomen and pelvis ordered. Prior to obtaining CT imaging patient continued to endorse 8/10 pain despite being given 4 mg of IV morphine. Additional morphine ordered for pain. CT of the abdomen and pelvis reviewed, shows no acute findings. Nothing to explain patient's symptoms. Patient was reassessed, she continues to complain of severe pain in her lower abdomen, she was curled in a ball and clutching her abdomen. IV droperidol ordered. CT head added due to patient complaints of vertigo. Care of patient is signed out to Dr. Barr at 0700 12/09/2023: Dr. Barr patient seen and evaluated by myself. Patient describes having abdominal pain starting overnight, she describes some black/purple stool lightheadedness nausea with dry heaves. She states she also had some bright red blood in her stool. But she states she was not able to have bowel movements. Patient states that all started last night. She appears quite uncomfortable she would just received droperidol few minutes before my evaluation. Patient states no daily medications currently she has had hysterectomy and oophorectomy she denies other abdominal surgeries. She states she has had a colonoscopy in the past and was told she had a tortuous colon. Patient's labs including white count, hemoglobin and platelets are appropriate, neutrophils are 79%, INR normal at 1, sodium is 140 potassium 3 6 chloride 108 CO2 is 24 with a BUN 12 and creatinine 0.78 glucose is 108, lactate 1.7 with otherwise appropriate LFTs. Urine shows pH 8.[address] otherwise normal[address] Patient had CT abdomen pelvis which shows no acute findings. Dependent bilateral lobe atelectasis no pericardial effusion or pleural effusion bilateral breast implants intra-abdominal organs are normal no abdominal ascites, no free fluid in the pelvis or pelvic adenopathy bladder is unremarkable colon and small bowel normal as is the appendix, no suspicious lytic or sclerotic lesions spondylitic changes of the thoracolumbar spine are normal, day shift shows a few nonspecific fluid-filled loops normally dilated small bowel could be related enteritis versus infection or inflammatory. Patient also noted that she had vertigo Dr. Campoverde and had a head CT which also shows no acute intracranial change. She notes she has had some vertigo symptoms for the past 4 days. On examination patient describes pain has been in the left lower quad although she has been press on her abdomen with her hand does not show any increase her pain. Reviewed all if patient's findings. Patient received several doses of pain medication, fluids and Zofran. Patient was still quite uncomfortable when I come into the room but she would just received a dose of droperidol from nightshift. On recheck patient's symptoms have improved quite a bit and she would like to return home. <Annamarie Barr, DO - Last Filed: 12/09/23 09:38> Lab Data Labs: Lab Results 12/09/23 12/09/23 Range/Units 05:00 05:06 WBC 7.8 (4.5-11.0) X10^3/uL RBC 4.23 (4.0-5.2) X10^6/uL Hgb 13.7 (12.0-16.0) g/dL Hct 39.6 (36-46) % MCV 93.6 (80-100) fL MCH 32.5 (26-34) PG MCHC 34.7 (30-36) % RDW 13.1 (11.6-14.8) % Plt Count 273 (150-400) X10^3/uL Neut % (Auto) 79.1 H (50-75) % Lymph % (Auto) 13.8 L (25-40) % [place] % (Auto) 5.9 (3-14) % Eos % (Auto) 0.8 L (2-4) % Baso % (Auto) 0.4 (0-2) % Neut # (Auto) 6200 (6446-1775) /uL Lymph # (Auto) 1100 (7407-5690) /uL [place] # (Auto) 500 (0-900) /uL Eos # (Auto) 100 (0-450) /uL Baso # (Auto) 0 (0-100) /uL PT 11.2 (9.4-12.5) SECONDS INR 1.0 (0.9-1.3) Sodium 140 (137-145) mmol/L Potassium 3.6 (3.4-5.1) mmol/L Chloride 108 H (98-107) mmol/L Carbon Dioxide 24 (22-32) mmol/L BUN 12 (7-17) mg/dL Creatinine 0.78 (0.52-1.04) mg/dL Estimated GFR > 60 (>60) mL/min BUN/Creatinine Ratio 15.4 (6-22) Glucose 108 H (70-100) mg/dL Lactate 1.7 (0.7-2.1) mmol/L Calcium 9.5 (8.4-10.2) mg/dL Total Bilirubin 0.5 (0.2-1.3) mg/dL AST 28 (14-36) IU/L ALT 15 (<35) IU/L Alkaline Phosphatase 107 (38-126) U/L Total Protein 7.7 (6.3-8.2) g/dL Albumin 4.9 (3.5-5.0) g/dL Globulin 2.8 (1.7-4.1) g/dL Albumin/Globulin Ratio 1.8 (1.0-2.8) Lipase 169 (23-300) U/L Urine Color Yellow Urine Appearance Clear Urine pH 8.5 H (4.5-8.0) Ur Specific [place] 1.015 (1.000-1.035) Urine Protein Negative (Negative) Urine Glucose (UA) Negative (Negative) g/dL Urine Ketones Negative (NEGATIVE) Urine Occult Blood Negative (Negative) Urine Nitrate Negative (Negative) Urine Bilirubin Negative (NEGATIVE) Urine Urobilinogen 0.2 (0.2) E.U./dL Ur Leukocyte Esterase Negative (NEGATIVE) Urine RBC None seen (0-5/HPF) Urine WBC None seen (0-5/HPF) Ur Squamous Epith Cells 0-1 /hpf (0-5/HPF) Urine Bacteria None seen (None) Ur Culture Indicated? Cult not indicated Vol Urine Centrifuged 10ml (spun) MDM Narrative Medical decision making narrative: Patient appears to be in significant pain, grabbing at her lower abdomen. States she has a history of hysterectomy and oophorectomy. 12/09/2023: Dr. Barr patient seen and evaluated by myself. Patient describes having abdominal pain starting overnight, she describes some black/purple stool lightheadedness nausea with dry heaves. She states she also had some bright red blood in her stool. But she states she was not able to have bowel movements. Patient states that all started last night. She appears quite uncomfortable she would just received droperidol few minutes before my evaluation. Patient states no daily medications currently she has had hysterectomy and oophorectomy she denies other abdominal surgeries. She states she has had a colonoscopy in the past and was told she had a tortuous colon. Patient's labs including white count, hemoglobin and platelets are appropriate, neutrophils are 79%, INR normal at 1, sodium is 140 potassium 3 6 chloride 108 CO2 is 24 with a BUN 12 and creatinine 0.78 glucose is 108, lactate 1.7 with otherwise appropriate LFTs. Urine shows pH 8.5 otherwise normal. Patient had CT abdomen pelvis which shows no acute findings. Dependent bilateral lobe atelectasis no pericardial effusion or pleural effusion bilateral breast implants intra-abdominal organs are normal no abdominal ascites, no free fluid in the pelvis or pelvic adenopathy bladder is unremarkable colon and small bowel normal as is the appendix, no suspicious lytic or sclerotic lesions spondylitic changes of the thoracolumbar spine are normal, day shift shows a few nonspecific fluid-filled loops normally dilated small bowel could be related enteritis versus infection or inflammatory. Patient also noted that she had vertigo Dr. Campoverde and had a head CT which also shows no acute intracranial change. She notes she has had some vertigo symptoms for the past 4 days. On examination patient describes pain has been in the left lower quad although she has been press on her abdomen with her hand does not show any increase her pain. Reviewed all if patient's findings. Patient received several doses of pain medication, fluids and Zofran. Patient was still quite uncomfortable when I come into the room but she would just received a dose of droperidol from nightshift. On recheck patient's symptoms have improved quite a bit and she would like to return home. Discharge Plan Departure Patient Disposition: Home Clinical Impression: Abdominal pain Instructions: DI for Abdominal Pain-Adult Activity Restrictions/Additional Instructions: Follow up for recheck, if you are having persistent symptoms he may need to follow up for repeat colonoscopy. Your workup today did not show a clear source for your symptoms. Please return for fevers, worsening symptoms, persistent vomiting, new changes to stool, passing out or other new or concerning changes. Prescriptions: No Action ondansetron 8 mg tablet,disintegrating 8 mg PO BID PRN (Reason: nausea and vomiting) Qty: 14 0RF clonazepam 0.5 mg Tablet 0.5 mg PO PRN PRN (Reason: Anxiety) albuterol sulfate 90 mcg/actuation Hfa Aerosol Inhaler 2 puff INHALATION Q4-6H PRN (Reason: Wheezing) mometasone [Nasonex] 50 MCG/PUFF spray,non-aerosol 1 spray Intranasal BID PRN (Reason: Congestion) omeprazole 20 mg capsule,delayed release(DR/EC) 20 mg PO DAILY Qty: 90 0RF methocarbamol 750 mg tablet 1,500 mg PO Q8H PRN (Reason: muscle spasm) Qty: 20 0RF ondansetron 4 mg tablet,disintegrating 4 mg PO Q8H PRN (Reason: nausea and vomiting) Qty: 10 0RF Referrals: Mark Carroll MD [Primary Care Provider] - Stand Alone Forms: Patient Portal/API
[2023-12-09 05:06] LABS: Add Manual Diff / Slide Review NO; Basophils Absolute Auto 0 /uL (0-100); Basophils Percent Auto 0.4 % (0-2); Eosinophils Absolute Auto 100 /uL (0-450); Eosinophils Percent Auto 0.8 % (2-4); Hematocrit 39.6 % (36-46); Hemoglobin 13.7 g/dL (12.0-16.0); Lymphocytes Absolute Auto 1100 /uL (1100-4500); Lymphocytes Percent Auto 13.8 % (25-40); Mean Corpuscular HGB Conc 34.7 % (30-36); Mean Corpuscular Hemoglobin 32.5 PG (26-34); Mean Corpuscular Volume 93.6 fL (80-100); Monocytes Absolute Auto 500 /uL (0-900); Monocytes Percent Auto 5.9 % (3-14); Neutrophils Absolute Auto 6200 /uL (1500-7000); Neutrophils Percent Auto 79.1 % (50-75); Platelet Count 273 X10^3/uL (150-400); Red Blood Cell Count 4.23 X10^6/uL (4.0-5.2); Red Cell Distribution Width 13.1 % (11.6-14.8); White Blood Cell Count 7.8 X10^3/uL (4.5-11.0)
[2023-12-09] MEDS: SODIUM CHLORIDE 0.9% 1,000 ML 1000 ML IV ×2 (05:11→07:02)
[2023-12-09] MEDS: ONDANSETRON 4 MG/2 ML INJ IV (05:11)
[2023-12-09] MEDS: MORPHINE 4 MG/ML INJ IV ×2 (05:11→06:12)
[2023-12-09 05:13] LABS: Prothrombin Time 11.2 SECONDS (9.4-12.5)
[2023-12-09 05:14] LABS: Appearance Urine UA CLEAR; Bilirubin Urine UA NEGATIVE (NEGATIVE); Color Urine UA YELLOW; Glucose Urine UA NEGATIVE (Negative); Ketones Urine UA NEGATIVE (NEGATIVE); Leukocyte Esterase Urine UA NEGATIVE (NEGATIVE); Nitrite Urine UA NEGATIVE (Negative); Occult Blood Urine UA NEGATIVE (Negative); Protein Urine UA NEGATIVE (Negative); Specific Gravity Urine UA 1.015 (1.000-1.035); Urobilinogen Urine UA 0.2 E.U./dL (0.2)
[2023-12-09 05:15] LABS: pH Urine UA 8.5 (4.5-8.0)
[2023-12-09 05:16] LABS: Bacteria Urine None Seen; Culture Indicated Urine Cult Not Indicated; RBC Urine None Seen (0-5/HPF); Squamous Epithelial Cell Urine 0-1 /HPF (0-5/HPF); Urine Volume 10mL (spun); WBC Urine None Seen (0-5/HPF)
[2023-12-09 05:18] LABS: Alanine Aminotransferase 15 IU/L (<35); Albumin 4.9 g/dL (3.5-5.0); Albumin Globulin Ratio 1.8 (1.0-2.8); Alkaline Phosphatase 107 U/L (38-126); Aspartate Aminotransferase 28 IU/L (14-36); BUN Creatinine Ratio 15.4 (6-22); Bilirubin Total 0.5 mg/dL (0.2-1.3); Blood Urea Nitrogen 12 mg/dL (7-17); Calcium 9.5 mg/dL (8.4-10.2); Carbon Dioxide 24 mmol/L (22-32); Chloride 108 mmol/L (98-107); Estimated Glomerular Filt Rate > 60 mL/min (>60); Globulin 2.8 g/dL (1.7-4.1); Glucose 108 mg/dL (70-100); HEMOLYSIS < 15 (0-50); Lactate (Lactic Acid) 1.7 mmol/L (0.7-2.1); Lipase 169 U/L (23-300); Potassium 3.6 mmol/L (3.4-5.1); Sodium 140 mmol/L (137-145); Total Protein 7.7 g/dL (6.3-8.2)
--- NOTE | 2023-12-09 06:47 | DI.CT.S_ITS ---
PROCEDURE: CT HEAD/BRAIN WO CON INDICATIONS: VERTIGO/SYNCOPE WITH HEAD TRAUMA TECHNIQUE: Noncontrast 4.5 mm thick angled axial sections acquired from the foramen magnum to the vertex, with coronal and sagittal reformats. For radiation dose reduction, the following was used: automated exposure control, adjustment of mA and/or kV according to patient size. COMPARISON: [facility], CT, CT HEAD/BRAIN WO CON, 06/27/2022, 13:39. [facility], CT, HEAD WITHOUT CONTRAST, 04/30/2014, 21:02. FINDINGS: Image quality: Diagnostic. CSF spaces: Basal cisterns are patent. No extra-axial fluid collections. Ventricles are normal in size and shape. Brain: No midline shift. No intracranial masses or hemorrhage. [place]-white matter interface is normal. Skull and face: Calvarium and visualized facial bones are intact, without suspicious lesions. Sinuses: Visualized sinuses and mastoids are clear. IMPRESSION: No acute intracranial pathology. No acute calvarial fractures. No evidence for mass or mass effect. Dictated by: David Zuleta M.D. on 12/09/2023 at 7:06 Approved by: David Zuleta M.D. on 12/09/2023 at 7:07
[2023-12-09] MEDS: DROPERIDOL 5 MG/2 ML VIAL 2.5 MG IV (07:02)
== END 2023-12-09 08:25 | disposition home or self-care (01) ==
PROVIDERS: Emergency Medicine; Emergency Provider Emergency Medicine; PCP Internal Medicine
DX: R10.13 Epigastric pain (principal); R55 Syncope and collapse; R42 Dizziness and giddiness; S09.90XA Unspecified injury of head, initial encounter
CPT/HCPCS: 36415; 70450; 74177; 80053; 81001; 83605; 83690; 85025; 85610; 93005; 96361; 96374; 96375; 96376; 99284; J1790; J2270; J2405; Q9967